=== PATIENT | female | born 2000 | race Caucasian/White ===

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

== ENCOUNTER → 2019-01-29 15:51 | Outpatient (CLI) | payer MEDICAID, SELFPAY ==
[2019-01-29 16:22] LABS: Basophils # 0.1 K/mm3 (0-0.2); Basophils % 0.7 % (0.1-2.0); Eosinophils # 0.5 K/mm3 (0.0-0.4); Eosinophils % 5.7 % (0.1-12.0); Hematocrit 42.9 % (37.0-47.0); Hemoglobin 13.8 g/dL (12.2-16.2); Lymphocytes # 3.1 K/mm3 (0.7-4.5); Lymphocytes % 35.6 % (10-50); Mean Corpuscular HGB Conc 32.3 g/dL (31.8-35.4); Mean Corpuscular Hemoglobin 27.3 pg (27.0-31.2); Mean Corpuscular Volume 84.6 fl (81-99); Mean Platelet Volume 6.7 fl (7.4-10.4); Monocytes # 0.6 K/mm3 (0.1-1.0); Monocytes % 6.9 % (1.7-9.3); Neutrophils # 4.4 K/mm3 (1.8-7.8); Neutrophils % 51.1 % (37.0-80.0); Platelet Count 390 K/mm3 (142-424); Red Blood Count 5.08 M/mm3 (4.20-5.40); Red Cell Distribution Width 12.4 % (11.5-17.5); White Blood Count 8.6 K/mm3 (4.5-13.0)
[2019-01-29 17:12] LABS: Free Thyroxine Index 3.7 ug/dL (5.93-13.13); T4 (Thyroxine) 11.6 ug/dl (5.4-10.6); Thyroid Stimulating Hormone 2.29 uIU/ml (0.516-4.13); Triiodothryronine (T3) Uptake 32 % (31-39)
== END ==
PROVIDERS: Visit Provider Nurse Practitioner Obstetrics & Gynecology
DX: R53.82 Chronic fatigue, unspecified (principal)
CPT/HCPCS: 36415; 84436; 84443; 84479; 85025

== ENCOUNTER → 2019-12-26 14:44 | Outpatient (CLI) | payer OTHER, SELFPAY ==
--- NOTE | 2019-12-26 14:45 | US_ITS ---
PROCEDURE: US TRANSVAGINAL CLINICAL INDICATION: pelvic pain Recurring infection, pelvic pain COMPARISON: US OBTV US OB transvaginal from 08/04/2017 FINDINGS: UTERUS: 8cm x 5cmx 3cm with a combined endometrial thickness of 9.5mm LEFT OVARY: [id number] with a volume of 10.5ml. RIGHT OVARY: [id number] with a volume of 7.5ml. Small nabothian cysts are present. Complex cyst is present in the left ovary measuring approximately 2 cm with some irregularity/thickening of the wall of the cyst. Small follicles of the right ovary are noted. Small amount of cul-de-sac fluid noted.. IMPRESSION: 2 cm complex left ovarian cyst with small amount of fluid in the cul-de-sac. Dictated b Lon Lam MD 12/26/2019 16:56 Lon Lam MD in [facility] 12/26/2019 16:56
== END ==
PROVIDERS: PCP Nurse Practitioner Obstetrics & Gynecology; Visit Provider Nurse Practitioner Obstetrics & Gynecology
DX: R10.2 Pelvic and perineal pain (principal)
CPT/HCPCS: 76830

== ENCOUNTER → 2020-09-07 16:35 | Outpatient (CLI) | payer OTHER, SELFPAY ==
[2020-09-11 10:12] LABS: Neisseria gonorrhoeae, NAA Negative (Negative)
== END ==
PROVIDERS: Visit Provider Nurse Practitioner Obstetrics & Gynecology
DX: Z72.51 High risk heterosexual behavior (principal)
CPT/HCPCS: 87491; 87591

== ENCOUNTER → 2020-11-12 12:58 | Outpatient (CLI) | payer OTHER, SELFPAY ==
--- NOTE | 2020-11-12 13:02 | MR_ITS ---
PROCEDURE: MR SHOULDER LT W CON CLINICAL INDICATION: LEFT SHOULDER PAIN Tingling down arm to 5th digit. Symptoms [id number] after lifting heavy object. Tightness on lateral aspect of humerus when raising arm. Prior x-ray 11/12/20. COMPARISON: KAREN,RYANNE IR ARTHROGRAM SHOULDER LT from 11/12/2020 TECHNIQUE: Following obtaining informed consent and time-out procedure under aseptic conditions and local anesthesia with 1 percent buffered lidocaine, 20 gauge spinal needle was inserted into the shoulder joint by the anterior approach. Approximately 12 mL of a mixture lidocaine, gadolinium, and Isovue-300 was injected without complication. Patient tolerated the procedure well without evidence of immediate complication. Images were obtained and then the patient was taken to MRI for MRI arthrogram sequences. FINDINGS: On the arthrogram images there was no evidence of contrast extravasation into the sub acromial region. No evidence of rotator cuff tear. No evidence of adhesive capsulitis. MRI arthrogram: There is absence of the anterior superior glenoid labrum at the 1 to 3 o'clock position with thickening of the middle glenohumeral ligament consistent with a [place] complex. There is no evidence of a rotator cuff tear. No abnormal extravasation into the subacromial region. There is some contrast extravasation into the soft tissues. The labrum appears intact. The supraspinatus, infraspinatus, subscapularis, and teres minor tendons appear intact. There is some extravasation of contrast along the inferior aspect of the axillary region adjacent to the humerus suggestive of humeral avulsion of the glenohumeral ligament posteriorly. The bicipital tendon is in place. No subacromial stenosis. IMPRESSION: 1. No evidence of rotator cuff tear. 2. [place] complex. 3. Findings suggestive of HAGL posteriorly Dictated by: Lon Lam MD 11/16/2020 08:32 Lon Lam MD in [facility] 11/16/2020 08:34
--- NOTE | 2020-11-12 13:29 | XR_ITS ---
PROCEDURE: XR SHOULDER LT MIN 2V CLINICAL INDICATION: LT SHOULDER PAIN COMPARISON: No exams were available for comparison FINDINGS: No fracture or dislocation. No lytic or blastic change. There is normal mineralization. The joint spaces are well-preserved. No significant degenerative/arthritic changes. No erosive changes evident. Other findings:None. IMPRESSION: No acute findings. Dictated by: Lon Lam MD 11/12/2020 13:43 Lon Lam MD in [facility] 11/12/2020 13:43
== END ==
PROVIDERS: Visit Provider Orthopaedic Surgery
DX: M25.512 Pain in left shoulder (principal)
CPT/HCPCS: 73030; 73040; 73222; Q9967

== ENCOUNTER → 2021-03-30 16:15 | Outpatient (CLI) | payer OTHER, SELFPAY ==
[2021-03-30 16:52] LABS: Basophils # 0.1 K/mm3 (0-0.2); Basophils % 0.9 % (0.1-2.0); Eosinophils # 0.1 K/mm3 (0.0-0.4); Eosinophils % 1.2 % (0.1-12.0); Hematocrit 41.2 % (37.0-47.0); Hemoglobin 13.8 g/dL (12.2-16.2); Lymphocytes # 3.4 K/mm3 (0.7-4.5); Lymphocytes % 30.4 % (10-50); Mean Corpuscular HGB Conc 33.4 g/dL (31.8-35.4); Mean Corpuscular Hemoglobin 27.8 pg (27.0-31.2); Mean Corpuscular Volume 83.3 fl (81-99); Mean Platelet Volume 7.9 fl (7.4-10.4); Monocytes # 0.9 K/mm3 (0.1-1.0); Neutrophils # 6.6 K/mm3 (1.8-7.8); Neutrophils % 59.4 % (37.0-80.0); Platelet Count 436 K/mm3 (142-424); Red Blood Count 4.95 M/mm3 (4.20-5.40); Red Cell Distribution Width 12.9 % (11.5-17.5); White Blood Count 11.1 K/mm3 (4.8-10.8)
[2021-03-30 17:06] LABS: Urine Pregnancy, HCG Qual. Negative (Negative)
[2021-03-30 18:37] LABS: Alanine Aminotransferase 13 U/L (12-78); Albumin Level 4.7 g/dl (3.5-5.0); Albumin/Globulin Ratio 1.5 (1.1-1.8); Alkaline Phosphatase 81 U/L (38-126); Anion Gap 16.1 mEq/L (5-15); Aspartate Amino Transferase 28 U/L (14-36); Bilirubin,Total 0.6 mg/dl (0.2-1.3); Blood Urea Nitrogen 5 mg/dl (7-17); Calcium 9.4 mg/dl (8.4-10.2); Carbon Dioxide 26 mmol/L (22.0-30.0); Chloride 100 mmol/L (98-107); Estimated Glomerular Filt Rate 156 ml/min (>60); GFR (African American) 188 ML/MIN (>60); Globulin 3.1 g/dL (1.3-3.2); Glucose 79 mg/dl (74-100); Potassium 4.1 mmoL/L (3.5-5.1); Sodium 138 mmol/L (136-145); Total Protein,Serum 7.8 g/dl (6.3-8.2)
[2021-03-30 18:51] LABS: T4 (Thyroxine) 10.3 ug/dl (5.53-11.0)
[2021-03-30 19:05] LABS: Thyroid Stimulating Hormone 2.31 uIU/mL (0.465-4.68)
[2021-03-30 20:25] LABS: Erythrocyte Sedimentation Rate 15 mm/hr (0-20)
== END ==
PROVIDERS: Visit Provider Internal Medicine
DX: R11.0 Nausea (principal); E04.9 Nontoxic goiter, unspecified; R53.83 Other fatigue; G43.009 Migraine without aura, not intractable, without status migrainosus
CPT/HCPCS: 36415; 80053; 81025; 84436; 84443; 85025; 85651

== ENCOUNTER → 2021-05-11 15:44 | Outpatient (CLI) | payer OTHER, SELFPAY ==
--- NOTE | 2021-05-11 15:49 | XR_ITS ---
PROCEDURE: XR SACRUM COCCYX MIN 2V CLINICAL INDICATION: FALL 2 MONTHS AGO, TAIL BONE PAIN COMPARISON: No exams were available for comparison FINDINGS: No obvious fracture or dislocation. On the lateral view there is some bony protrudes along the posterior and proximal aspect of the mid coccyx which may be related to the mildly prominent transverse processes of the C4 segment of the coccyx as seen on the AP view. IMPRESSION: No definite acute finding. Dictated by: Lon Lam MD 05/11/2021 16:05 Lon Lam MD in [facility] 05/11/2021 16:05
== END ==
PROVIDERS: PCP Internal Medicine; Visit Provider Internal Medicine
DX: M53.3 Sacrococcygeal disorders, not elsewhere classified (principal); W19.XXXD Unspecified fall, subsequent encounter
CPT/HCPCS: 72220

== ENCOUNTER → 2021-09-03 17:14 | Outpatient (CLI) | payer OTHER, SELFPAY | PROVIDERS: PCP Internal Medicine; Visit Provider Internal Medicine | DX: L03.032 Cellulitis of left toe (principal); B95.7 Other staphylococcus as the cause of diseases classified elsewhere | CPT/HCPCS: 87070; 87077; 87186; 87205 ==

== ENCOUNTER → 2022-04-15 15:01 | Outpatient (CLI) | payer OTHER, SELFPAY | PROVIDERS: PCP Internal Medicine; Visit Provider Obstetrics & Gynecology | DX: Z34.90 Encounter for supervision of normal pregnancy, unspecified, unspecified trimester (principal) | CPT/HCPCS: 36415; 84702 ==

== ENCOUNTER → 2022-04-26 11:45 | Outpatient (CLI) | payer OTHER, SELFPAY ==
[2022-04-26 12:43] LABS: Basophils # 0.1 K/mm3 (0-0.2); Basophils % 0.5 % (0.1-2.0); Eosinophils # 0.1 K/mm3 (0.0-0.4); Eosinophils % 1.2 % (0.1-12.0); Hemoglobin 12.4 g/dL (12.2-16.2); Lymphocytes # 2.5 K/mm3 (0.7-4.5); Lymphocytes % 26.1 % (10-50); Mean Corpuscular HGB Conc 32.6 g/dL (31.8-35.4); Mean Corpuscular Hemoglobin 27.9 pg (27.0-31.2); Mean Corpuscular Volume 85.4 fl (81-99); Mean Platelet Volume 7.2 fl (7.4-10.4); Monocytes # 0.5 K/mm3 (0.1-1.0); Monocytes % 5.2 % (1.7-9.3); Neutrophils # 6.4 K/mm3 (1.8-7.8); Neutrophils % 66.9 % (37.0-80.0); Platelet Count 402 K/mm3 (142-424); Red Blood Count 4.45 M/mm3 (4.20-5.40); Red Cell Distribution Width 13.6 % (11.5-17.5); White Blood Count 9.6 K/mm3 (4.8-10.8)
[2022-04-27 07:26] LABS: Rubella Antibodies, IgG 1.31 index (Immune >0.99)
[2022-04-27 12:38] LABS: Rapid Plasma Reagin Ab Titer Non Reactive (NonRea<1:1)
[2022-05-07 23:38] LABS: HIV Screen 4th Generation wRfx NON REACTIVE; Hepatitis B Surface Antigen NEGATIVE; Hepatitis C Antibody <0.1
== END ==
PROVIDERS: PCP Internal Medicine; Visit Provider Obstetrics & Gynecology
DX: Z34.90 Encounter for supervision of normal pregnancy, unspecified, unspecified trimester (principal)
CPT/HCPCS: 36415; 85025; 86592; 86703; 86762; 86850; 87086; 87340; 87380; G0432

== ENCOUNTER → 2022-07-15 15:18 | Outpatient (CLI) | payer OTHER, SELFPAY ==
--- NOTE | 2022-07-15 15:18 | US_ITS ---
FINAL REPORT CLINICAL HISTORY: 20 week anatomy scan FINDINGS: There is a single live intrauterine gestation. Presentation is cephalic. The cervix is closed and measures 4.8 cm. Placenta is low lying posterior. movement is noted. heart rate of 146 beats per minute. Three-vessel cord with satisfactory umbilical cord insertion. Four-chamber heart is noted. brain and ventricles are unremarkable. Chest and diaphragm are unremarkable. ABDOMEN: Both kidneys are visualized. Stomach is visualized. SPINE: No anomalies identified. Both arms and legs noted. AMNIOTIC FLUID: Appropriate amount. MEASUREMENTS: ULTRASOUND AGE: 20 weeks 3 days. GESTATION AGE: 20 weeks 3 days. ESTIMATED WEIGHT: 339 g GROWTH PERCENTILE: 33 % BPD: 4.9 cm consistent with 20 weeks 6 days. OFD: 6.3 cm consistent with 21 weeks 0 days. HC: 17.7 cm consistent with 20 weeks 2 days. AC: 15.1 cm consistent with 20 weeks 3 days. FL: 3.2 cm consistent with 20 weeks 0 days. CEREBELLUM: 2.0 cm consistent with 20 weeks 2 days. HUMERUS: 3.2 cm consistent with 20 weeks 4 days. HC/AC: 1.17 CI: 78% FL/BPD: 65% FL/AC: 21% IMPRESSION: IMPRESSION: Single living IUP with an ultrasound age of 20 weeks 3 days. Reviewed, Interpreted and Dictated by Charity Contreras MD Transcribed by Rekha Blankenship Authenticated and [facility]
== END ==
PROVIDERS: PCP Internal Medicine; Visit Provider Obstetrics & Gynecology
DX: Z34.90 Encounter for supervision of normal pregnancy, unspecified, unspecified trimester (principal); Z3A.20 20 weeks gestation of pregnancy
CPT/HCPCS: 76811

== ENCOUNTER → 2022-08-29 08:52 | Outpatient (CLI) | payer OTHER, SELFPAY ==
[2022-08-29 09:08] LABS: Basophils # 0.1 K/mm3 (0-0.2); Basophils % 0.4 % (0.1-2.0); Eosinophils # 0.3 K/mm3 (0.0-0.4); Eosinophils % 2.3 % (0.1-12.0); Hematocrit 31.4 % (37.0-47.0); Hemoglobin 10.2 g/dL (12.2-16.2); Lymphocytes # 2.8 K/mm3 (0.7-4.5); Lymphocytes % 24.8 % (10-50); Mean Corpuscular HGB Conc 32.5 g/dL (31.8-35.4); Mean Corpuscular Hemoglobin 26.4 pg (27.0-31.2); Mean Corpuscular Volume 81.2 fl (81-99); Monocytes # 0.9 K/mm3 (0.1-1.0); Monocytes % 7.5 % (1.7-9.3); Neutrophils # 7.3 K/mm3 (1.8-7.8); Platelet Count 333 K/mm3 (142-424); Red Blood Count 3.86 M/mm3 (4.20-5.40); Red Cell Distribution Width 13.5 % (11.5-17.5); White Blood Count 11.3 K/mm3 (4.8-10.8)
[2022-08-29 09:23] LABS: Glucose,Fasting 86 mg/dl (74-100)
[2022-08-29 10:45] LABS: Glucose 1 Hour 167 mg/dL (74-100)
== END ==
PROVIDERS: PCP Internal Medicine; Visit Provider Obstetrics & Gynecology
DX: O44.40 Low lying placenta NOS or without hemorrhage, unspecified trimester (principal); O99.810 Abnormal glucose complicating pregnancy; Z3A.23 23 weeks gestation of pregnancy
CPT/HCPCS: 36415; 82951; 85025

== ENCOUNTER → 2022-09-09 10:36 | Outpatient (CLI) | payer OTHER, SELFPAY ==
[2022-09-09 11:07] LABS: Glucose,Fasting 82 mg/dl (74-100)
[2022-09-09 12:58] LABS: Glucose 1 Hour 180 mg/dL (74-100)
[2022-09-09 14:00] LABS: Glucose 2 Hour 164 mg/dL (74-100)
[2022-09-09 15:36] LABS: Glucose 3 Hour 129 mg/dL (74-100)
== END ==
PROVIDERS: PCP Internal Medicine; Visit Provider Obstetrics & Gynecology
DX: Z34.90 Encounter for supervision of normal pregnancy, unspecified, unspecified trimester (principal); Z3A.28 28 weeks gestation of pregnancy
CPT/HCPCS: 36415; 82951

== ENCOUNTER 2022-10-14 00:12 | Observation (INO) | payer OTHER, SELFPAY ==
[2022-10-13 23:25] VITALS: BP 138/93; PULSE 120; RESP 19; TEMP 36.8; O2SAT 98; BMI 25.2
[2022-10-13 23:30] VITALS: BMI 25.2
[2022-10-13 23:36] VITALS: BP 139/87; PULSE 119
[2022-10-13 23:45] LABS: Microscopic, Urine URINE MICROSCOPIC (MICROSCOPIC)
[2022-10-13 23:48] LABS: Appearance,Urine CLEAR (Clear); Bilirubin,Urine Negative (Negative); Blood, Urine Negative (Negative); Color,Urine YELLOW (Yellow); Glucose,Urine (UA) 1+ (Negative); Ketones,Urine Negative (Negative); Leukocyte Esterase,Urine Negative (Negative); Nitrate,Urine Negative (Negative); Protein,Urine Negative (Negative); Urobilinogen,Urine 0.2 EU/dl (0.2)
[2022-10-13 23:51] VITALS: BP 150/105; PULSE 125
[2022-10-13 23:51] LABS: Bacteria,Urine Trace /lpf; RBC,Urine Occasional #/hpf (0-3); WBC,Urine Occasional #/hpf (0-3)
[2022-10-13 23:53] VITALS: BP 138/102
[2022-10-14] VITALS (20 sets, daily range): BP systolic 98–143; BP diastolic 53–97; PULSE 93–130; RESP 18–20; TEMP 36.7–36.9; O2SAT 98–99
[2022-10-14] LABS: Barbiturates Screen,Urine Negative ng/ml (<200); Benzodiazepines Screen,Urine Negative ng/ml (<200)
[2022-10-14 00:01] LABS: Amphetamine/Metha Screen,Urine Negative ng/ml (<1000); Cannabinoid Screen,Urine Negative ng/ml (<50)
[2022-10-14 00:02] LABS: Cocaine Screen,Urine Negative ng/ml (<300)
[2022-10-14 00:03] LABS: Methadone Screen,Urine Negative ng/ml (<300); Opiate Screen,Urine Negative ng/ml (<300)
[2022-10-14 00:04] LABS: Phencyclidine Screen,Urine Negative ng/ml (<25)
[2022-10-14 00:49] LABS: Coronavirus 19, PCR Not Detected (NotDetected); Influenza A, PCR Not Detected (NotDetected); Influenza B, PCR Not Detected (NotDetected)
[2022-10-14 01:02] LABS: Basophils % 0.2 % (0.1-2.0); Eosinophils # 0.3 K/mm3 (0.0-0.4); Eosinophils % 2.3 % (0.1-12.0); Hematocrit 28.1 % (37.0-47.0); Lymphocytes % 25.6 % (10-50); Mean Corpuscular HGB Conc 32.2 g/dL (31.8-35.4); Mean Corpuscular Hemoglobin 23.3 pg (27.0-31.2); Mean Corpuscular Volume 72.4 fl (81-99); Mean Platelet Volume 8.5 fl (7.4-10.4); Monocytes # 1.1 K/mm3 (0.1-1.0); Monocytes % 9.3 % (1.7-9.3); Neutrophils # 7.3 K/mm3 (1.8-7.8); Neutrophils % 62.5 % (37.0-80.0); Platelet Count 386 K/mm3 (142-424); Red Blood Count 3.88 M/mm3 (4.20-5.40); Red Cell Distribution Width 15.4 % (11.5-17.5); White Blood Count 11.7 K/mm3 (4.8-10.8)
[2022-10-14 01:10] LABS: D-Dimer 1.48 ug/mL (0.0-0.5)
[2022-10-14 01:13] LABS: Activated Partial Thrombo Time 23.4 seconds (22.8-30.6); Fibrinogen 436 mg/dL (229.9-363.5); INR 0.91 (0.9-1.1); Prothrombin Time 9.9 seconds (10.1-12.5)
[2022-10-14 01:19] LABS: Alanine Aminotransferase 21 U/L (12-78); Anion Gap 14.3 mEq/L (5-15); Aspartate Amino Transferase 33 U/L (14-36); Blood Urea Nitrogen 3 mg/dl (7-17); Calcium 7.9 mg/dl (8.4-10.2); Carbon Dioxide 22 mmol/L (22.0-30.0); Chloride 103 mmol/L (98-107); Creatinine Clearance Estimated 291 mL/min (50-200); Estimated Glomerular Filt Rate 278 ml/min (>60); GFR (African American) 337 ML/MIN (>60); Glucose 111 mg/dl (74-100); Potassium 3.3 mmoL/L (3.5-5.1); Sodium 136 mmol/L (136-145); Uric Acid 2.5 mg/dl (2.5-6.2)
--- NOTE | 2022-10-14 16:39 | EXP.HPDC ---
General Admission date:: 10/14/22 Discharge date: 10/14/22 *Admission Date: 10/14/22 *Chief complaint: back pain *History of present illness: 21 yo at 31 07/19 She presented to OB triage with complaint of back pain and concerned about possible contractions She was not having contractions on the monitor when she arrived, but BP was initially elevated 130-150/70-100 She was admitted for observation, and after moving into a regular hospital room, all of her BP except 1 were normal range monitoring was reassuring overnight and BP remained normal She had moderate anemia noted during lab evaluation for hypertension, and was given a dose of IV iron therapy while admitted She also had some tachycardia associated with her [facility] Disclaimer: The information contained in this section may have been updated after the patient was seen, as this information can be updated by other users. Medical History History of trichomonal vaginitis Tenosynovitis of wrist Family History (Updated 10/14/22 @ 03:43 by Andree Valdes RN) No significant family history Social History (Updated 10/14/22 @ 03:43 by Andree Valdes RN) Smoking Status: Never smoker alcohol intake: never substance use type: denies use current occupational status: unemployed Travel in the last 8 weeks: None do you feel safe at home: Yes victim of physical abuse: No victim of emotional abuse: No victim of sexual abuse: No Review of Systems Constitutional Constitutional: Reports system reviewed and no additional complaints, except as documented and Denies headache(s) ENT Ears, Nose, Mouth, and Throat: Denies headache(s) *Genitourinary Genitourinary: Denies abnormal vaginal bleeding *Neurologic Neurologic: Denies headache(s) and Denies other visual disturbances Exam Data for Last 24 hours Vital signs and Labs for Last 24 Hours: Temp Pulse Resp BP Pulse Ox 98.4 F 102 H 20 113/61 98 10/14/22 16:06 10/14/22 16:06 10/14/22 16:06 10/14/22 16:06 10/14/22 16:06 Laboratory Results - last 24 hr 10/13/22 23:34: Urine Color Yellow, Urine Appearance Clear, Urine pH 6.0, Ur Specific [place] 1.010, Urine Protein Negative, Urine Glucose (UA) 1+, Urine Ketones Negative, Urine Blood Negative, Urine Nitrate Negative, Urine Bilirubin Negative, Urine Urobilinogen 0.2, Ur Leukocyte Esterase Negative, Urine RBC Occasional, Urine WBC Occasional, Ur Squamous Epith Cells 3-5, Urine Bacteria Trace 10/13/22 23:34: Urine Opiates Screen Negative, Urine Methadone Screen Negative, Ur Barbituates Screen Negative, Ur Phencyclidine Scrn Negative, Ur Amphetamines Screen Negative, U Benzodiazepines Scrn Negative, Urine Cocaine Screen Negative, U Marijuana (THC) Screen Negative 10/14/22 00:25: SARS-CoV-2 (PCR) Not detected, Influenza A Untype (PCR) Not detected, Influenza Type B (PCR) Not detected 10/14/22 00:30: WBC 11.7 H, RBC 3.88 L, Hgb 9.0 L, Hct 28.1 L, MCV 72.4 L, MCH 23.3 L, MCHC 32.2, RDW 15.4, Plt Count 386, MPV 8.5, Neut % (Auto) 62.5, Lymph % (Auto) 25.6, [place] % (Auto) 9.3, Eos % (Auto) 2.3, Baso % (Auto) 0.2, Neut # (Auto) 7.3, Lymph # (Auto) 3.0, [place] # (Auto) 1.1 H, Eos # (Auto) 0.3, Baso # (Auto) 0.0 10/14/22 00:30: PT 9.9 L, INR 0.91, APTT 23.4, Fibrinogen 436 H 10/14/22 00:30: D-Dimer 1.48 H, Sodium 136, Potassium 3.3 L, Chloride 103, Carbon Dioxide 22, Anion Gap 14.3, BUN 3 L, Creatinine 0.30 L, Estimated Creat Clear 291, Estimated GFR 278, Est GFR ( Amer) 337, Glucose 111 H, Uric Acid 2.5, Calcium 7.9 L, AST 33, ALT 21 I & O for Last 24 hours: Intake & Output 10/12/22 10/13/22 10/14/22 10/15/22 11:59 11:59 11:59 11:59 Weight 138 lb Constitutional Constitutional: no acute distress *Routine HEENT Exam Head: Present normocephalic Eye: Absent conjunctival icterus or scleral injection ENT: Present mucous membranes moist *Routine Neck Exam Neck: Present supple
== END 2022-10-14 17:43 | disposition home or self-care (01) ==
LOC: OBOUT 00:14 → OB 06:08
PROVIDERS: Admitting Provider Nurse Practitioner Obstetrics & Gynecology; PCP Internal Medicine; Referring Provider Obstetrics & Gynecology; Visit Provider Nurse Practitioner Obstetrics & Gynecology
DX: O47.03 False labor before 37 completed weeks of gestation, third trimester (principal); Z3A.33 33 weeks gestation of pregnancy; O99.019 Anemia complicating pregnancy, unspecified trimester; O16.3 Unspecified maternal hypertension, third trimester
CPT/HCPCS: 59025; 80048; 80305; 81001; 84450; 84460; 84550; 85025; 85378; 85384; 85610; 85730; 87635; 87636; C9803; G0378; J1756; J2405; U0003; U0005

== ENCOUNTER → 2022-10-19 16:36 | Outpatient (CLI) | payer OTHER, SELFPAY ==
--- NOTE | 2022-10-19 16:36 | US_ITS ---
PROCEDURE: US OB BIOPHYSICAL PROFILE CLINICAL INDICATION: sga TECHNIQUE: Transabdominal ultrasound FINDINGS: The following parameters are obtained: From her last menstrual period she is 34 weeks 1 day There is a viable fetus in the cephalic presentation. Average ultrasound age [id number] 0 days. Estimated due date by ultrasound is 11/30/2022. Estimated weight is 2,308g, 5 pounds 1 ounce. 37 percentile. BPD: 34weeks 4days OFD: 34weeks 4days HC: 30.4cm AC: 30.5cm FL: 6.3cm heart rate: 140bpm bpm. HC/AC: 1 Cephalic index: 0.8 FL/BPD: 0.74 FL/AC: 0.21 Amniotic fluid index: 13.25cm Qualitative AFV: 2 breathing movements: 2 Gross body movements: 2 Tone: 2 Biophysical profile score: 8 Doppler evaluation of the umbilical artery: SD ratio: 2.9 Resistive index: 0.66 No obvious anomalies evident. profile, kidneys, four-chamber heart, bladder, three-vessel cord all appear normal. Placenta: Posterior grade 2 Cervix: 3.73 cm IMPRESSION: 1. Fetus is in the cephalic presentation with a posterior placenta grade 2. 2. Biophysical profile is 8/8 with good breathing movement seen. 3. Amniotic fluid index is 13.25 cm. 4. There has been good growth with the estimated weight 2308 grams, 5 pounds 1 ounce. 37 percentile Dictated by: Marek Mcrae MD 10/19/2022 18:15 Marek Mcrae MD in [place] 10/19/2022 18:15
== END ==
PROVIDERS: PCP Internal Medicine; Visit Provider Obstetrics & Gynecology
DX: O36.5990 Maternal care for other known or suspected poor fetal growth, unspecified trimester, not applicable or unspecified (principal); Z3A.34 34 weeks gestation of pregnancy
CPT/HCPCS: 76816; 76819; 76820

== ENCOUNTER 2022-10-23 22:38 | Observation (INO) | payer OTHER, SELFPAY ==
[2022-10-23 20:17] VITALS: BMI 25.9
[2022-10-23 20:28] LABS: Microscopic, Urine URINE MICROSCOPIC (MICROSCOPIC)
[2022-10-23 20:36] LABS: Appearance,Urine CLEAR (Clear); Bilirubin,Urine Negative (Negative); Blood, Urine Negative (Negative); Color,Urine YELLOW (Yellow); Glucose,Urine (UA) Negative (Negative); Ketones,Urine TRACE (Negative); Leukocyte Esterase,Urine 1+ (Negative); Nitrate,Urine Negative (Negative); Protein,Urine Negative (Negative); Urobilinogen,Urine 0.2 EU/dl (0.2)
[2022-10-23 20:38] VITALS: BP 113/87; PULSE 104; RESP 18; TEMP 36.8; O2SAT 98; BMI 25.9
[2022-10-23 20:39] LABS: POC Glucose,Bedside 95 (70-110)
[2022-10-23 20:48] LABS: Barbiturates Screen,Urine Negative ng/ml (<200); Benzodiazepines Screen,Urine Negative ng/ml (<200)
[2022-10-23 20:49] LABS: Amphetamine/Metha Screen,Urine Negative ng/ml (<1000)
[2022-10-23 20:50] LABS: Cannabinoid Screen,Urine Negative ng/ml (<50)
[2022-10-23 20:51] VITALS: BP 132/90; PULSE 105
[2022-10-23 20:53] LABS: Bacteria,Urine Trace /lpf
[2022-10-23 21:25] LABS: Cocaine Screen,Urine Negative ng/ml (<300)
[2022-10-23 21:26] LABS: Methadone Screen,Urine Negative ng/ml (<300)
[2022-10-23 21:27] LABS: Opiate Screen,Urine Negative ng/ml (<300); Phencyclidine Screen,Urine Negative ng/ml (<25)
[2022-10-23 21:35] LABS: Chloride 102 mmol/L (98-107); Sodium 134 mmol/L (136-145)
[2022-10-23 21:36] LABS: Basophils % 0.2 % (0.1-2.0); Eosinophils # 0.2 K/mm3 (0.0-0.4); Eosinophils % 1.3 % (0.1-12.0); Hematocrit 30.7 % (37.0-47.0); Hemoglobin 9.9 g/dL (12.2-16.2); Lymphocytes # 2.5 K/mm3 (0.7-4.5); Lymphocytes % 19.8 % (10-50); Mean Corpuscular HGB Conc 32.1 g/dL (31.8-35.4); Mean Corpuscular Hemoglobin 23.2 pg (27.0-31.2); Mean Corpuscular Volume 72.1 fl (81-99); Monocytes % 7.8 % (1.7-9.3); Neutrophils # 8.8 K/mm3 (1.8-7.8); Neutrophils % 70.9 % (37.0-80.0); Platelet Count 328 K/mm3 (142-424); Red Blood Count 4.26 M/mm3 (4.20-5.40); Red Cell Distribution Width 17.6 % (11.5-17.5); White Blood Count 12.4 K/mm3 (4.8-10.8)
[2022-10-23 21:38] LABS: Alanine Aminotransferase 15 U/L (12-78); Albumin Level 3.5 g/dl (3.5-5.0); Albumin/Globulin Ratio 1.1 (1.1-1.8); Alkaline Phosphatase 144 U/L (38-126); Aspartate Amino Transferase 28 U/L (14-36); Bilirubin,Total 0.4 mg/dl (0.2-1.3); Blood Urea Nitrogen 5 mg/dl (7-17); Carbon Dioxide 22 mmol/L (22.0-30.0); Creatinine Clearance Estimated 224 mL/min (50-200); Estimated Glomerular Filt Rate 200 ml/min (>60); GFR (African American) 242 ML/MIN (>60); Globulin 3.1 g/dL (1.3-3.2); Total Protein,Serum 6.6 g/dl (6.3-8.2)
[2022-10-23 21:39] LABS: Calcium 8.7 mg/dl (8.4-10.2); Glucose 72 mg/dl (74-100)
[2022-10-23 22:11] VITALS: BP 120/84; PULSE 104
[2022-10-23 22:22] LABS: POC Glucose,Bedside 103 (70-110)
--- NOTE | 2022-10-23 22:31 | CT_ITS ---
PROCEDURE INFORMATION: Exam: CT Head Without Contrast Exam date and time: 10/23/2022 11:17 PM Age: 21 years old Clinical indication: Stroke-like symptoms; Headache; Right upper extremity numbness/paresthesia; Additional info: Headache with double vision, numbness in hand TECHNIQUE: Imaging protocol: Computed tomography of the head without contrast. Radiation optimization: All CT scans at this facility use at least one of these dose optimization techniques: automated exposure control; mA and/or kV adjustment per patient size (includes targeted exams where dose is matched to clinical indication); or iterative reconstruction. Other technique: STROKE PROTOCOL was implemented. REPORTING DATA: Count of CT and Cardiac NM exams in prior 12 months: This patient has received 0 known CTs and 0 known cardiac nuclear medicine studies in the 12 months prior to the current study. COMPARISON: [facility] CT HEAD W/O CONTRAST 01/29/2016 10:12 AM FINDINGS: Brain: Normal appearing brain parenchyma without intraparenchymal hemorrhage and normal richardson-white matter differentiation/no obvious acute ischemic stroke. No intra-or extra-axial fluid collection, no supra-or infratentorial mass, no mass effect or midline shift. Cerebral ventricles: Ventricles, sulci and basal cisterns are normal in size without hydrocephalus. Paranasal sinuses: No significant mucoperiosteal thickening in the visualized paranasal sinuses. Mastoid air cells: No mastoid effusion. Bones/joints: Visualized skull bones are grossly normal. Soft tissues: NA IMPRESSION: No evidence of an acute intracranial hemorrhage, mass lesion or obvious acute ischemic infarction. COMMENT: Possibility of early and/or small acute/subacute ischemic infarct cannot be excluded on a CT scan. Recommend followup with MRI if persistent/worsening focal neurological deficits. ASSESSMENT: ASPECTS ([place] Stroke Program Early CT Score) is 10.
[2022-10-23 23:45] VITALS: BP 115/73; PULSE 100
[2022-10-24 03:55] VITALS: BP 107/65; PULSE 93; RESP 18; TEMP 36.9; O2SAT 97
--- NOTE | 2022-10-24 07:13 | HMH.PHAINT1 ---
Pharmacy Intervention Comments: MEDICATION RECONCILIATION COMPLETED ON PATIENT USING EXTERNAL FILL HISTORY FROM PHARMACY. -GEE GIBBONS, MARTD
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
== END 2022-10-24 13:00 | disposition home or self-care (01) ==
LOC: OBOUT 22:39 → OB 10-24 00:23
PROVIDERS: Admitting Provider Obstetrics & Gynecology; PCP Internal Medicine; Visit Provider Obstetrics & Gynecology
DX: O26.893 Other specified pregnancy related conditions, third trimester (principal); G43.909 Migraine, unspecified, not intractable, without status migrainosus; O99.013 Anemia complicating pregnancy, third trimester; R12 Heartburn
CPT/HCPCS: 70450; 80053; 80305; 81001; 82962; 85025; 87086; G0378

== ENCOUNTER → 2022-11-01 19:17 | Outpatient (CLI) | payer OTHER, SELFPAY | PROVIDERS: PCP Obstetrics & Gynecology; Visit Provider Obstetrics & Gynecology | DX: Z34.93 Encounter for supervision of normal pregnancy, unspecified, third trimester (principal); Z3A.36 36 weeks gestation of pregnancy | CPT/HCPCS: 86403 ==

== ENCOUNTER → 2022-11-29 14:40 | Outpatient (CLI) | payer OTHER, SELFPAY ==
--- NOTE | 2022-11-29 14:45 | US_ITS ---
PROCEDURE: US OB BIOPHYSICAL PROFILE CLINICAL INDICATION: Post Dates COMPARISON: Ultrasound 10/19/2022 FINDINGS: Transabdominal images of the uterus were obtained. From her established due date she is 40weeks 0 days. The following parameters are obtained: Fetus in the cephalic presentation with a posterior placenta grade 2-3. Average ultrasound age is 37weeks 6days. Estimated due date by ultrasound is 12/14/2022. Estimated weight is 7lb 5.36oz, 3327 grams. 27percentile. heart rate: 147bpm bpm. BPD: 37weeks 2days OFD: 37weeks 2days HC: 37 weeks 3 days AC: 38 weeks 3 days FL: 36 weeks 6 days HC/AC: 0.95 Cephalic index: 0.84 FL/BPD: 0.76 FL/AC: 0.21 Amniotic fluid index: 8.88cm Qualitative AFV: 2 breathing movements: 2 Gross body movements: 2 Tone: 2 Biophysical profile score: 8 Doppler evaluation of the umbilical artery: SD ratio: 1.94 Resistive index: 0.48 No obvious anomalies evident.Kidneys, three-vessel cord appear normal. Profile and four-chamber view appear normal IMPRESSION: 1. Viable fetus in the cephalic presentation with a posterior placenta grade 2-3. 2. The fluid is normal with an amniotic fluid index of 8.9 cm. 3. SD ratios normal. 4. Biophysical profile 8/8 with good breathing movement seen. 5. Good growth currently 27 percentile. 6. There was an episode of tachycardia during examination and the heart rate returned to normal. Dictated by: Marek Mcrae MD 11/29/2022 19:12 Marek Mcrae MD in [place] 11/29/2022 19:12
== END ==
PROVIDERS: PCP Internal Medicine; Visit Provider Nurse Practitioner Obstetrics & Gynecology
DX: O48.0 Post-term pregnancy (principal); Z34.93 Encounter for supervision of normal pregnancy, unspecified, third trimester; Z3A.40 40 weeks gestation of pregnancy
CPT/HCPCS: 76816; 76819; 76820

== ENCOUNTER 2022-12-05 05:08 | Inpatient (IN) | payer OTHER, SELFPAY ==
[2022-12-05 05:11] VITALS: BMI 27.2
[2022-12-05 05:44] LABS: Microscopic, Urine URINE MICROSCOPIC (MICROSCOPIC)
[2022-12-05 05:52] LABS: Basophils # 0.1 K/mm3 (0-0.2); Basophils % 0.4 % (0.1-2.0); Eosinophils # 0.2 K/mm3 (0.0-0.4); Eosinophils % 1.5 % (0.1-12.0); Hematocrit 38.9 % (37.0-47.0); Hemoglobin 12.3 g/dL (12.2-16.2); Lymphocytes % 27.7 % (10-50); Mean Corpuscular HGB Conc 31.6 g/dL (31.8-35.4); Mean Corpuscular Hemoglobin 23.9 pg (27.0-31.2); Mean Corpuscular Volume 75.6 fl (81-99); Mean Platelet Volume 9.2 fl (7.4-10.4); Monocytes # 0.9 K/mm3 (0.1-1.0); Monocytes % 8.6 % (1.7-9.3); Neutrophils # 6.6 K/mm3 (1.8-7.8); Neutrophils % 61.7 % (37.0-80.0); Platelet Count 289 K/mm3 (142-424); Red Blood Count 5.15 M/mm3 (4.20-5.40); Red Cell Distribution Width 21.7 % (11.5-17.5); White Blood Count 10.6 K/mm3 (4.8-10.8)
[2022-12-05 05:55] LABS: Appearance,Urine CLEAR (Clear); Bilirubin,Urine Negative (Negative); Blood, Urine Negative (Negative); Color,Urine YELLOW (Yellow); Glucose,Urine (UA) Negative (Negative); Ketones,Urine Negative (Negative); Leukocyte Esterase,Urine TRACE (Negative); Nitrate,Urine Negative (Negative); PH,Urine 5.5 (5.0-8.5); Protein,Urine TRACE (Negative); Specific Gravity, Urine >= 1.030 (1.005-1.030)
[2022-12-05 06:22] LABS: Bacteria,Urine 1+ /lpf; Calcium Oxalate Crystals,Urine 1+ /lpf
[2022-12-05 06:43] VITALS: BP 126/98; PULSE 95; RESP 18; TEMP 36.8; O2SAT 98; BMI 27.2
[2022-12-05 06:53] LABS: Opiate Screen,Urine Negative ng/ml (<300)
[2022-12-05 06:54] LABS: Phencyclidine Screen,Urine Negative ng/ml (<25)
[2022-12-05 06:58] LABS: Amphetamine/Metha Screen,Urine Negative ng/ml (<1000); Barbiturates Screen,Urine Negative ng/ml (<200)
[2022-12-05 06:59] LABS: Benzodiazepines Screen,Urine Negative ng/ml (<200); Cannabinoid Screen,Urine Negative ng/ml (<50)
[2022-12-05 07:00] LABS: Cocaine Screen,Urine Negative ng/ml (<300)
[2022-12-05 07:01] LABS: Methadone Screen,Urine Negative ng/ml (<300)
--- NOTE | 2022-12-05 07:19 | HMH.PHAINT1 ---
Pharmacy Intervention Comments: MEDICATION RECONCILIATION COMPLETED ON PATIENT USING EXTERNAL FILL HISTORY FROM PHARMACY. -GEE GIBBONS, MARTD
--- NOTE | 2022-12-05 08:39 | EXP.HP ---
History of Present Illness *Admission Date: 12/05/22 *Reason for visit:: Postterm , *History of present illness: She is a 22-year-old 3 para 1 aborta 1 at 40 weeks and 6 days. As result of that she is admitted for induction of labor at term. She has a positive blood, she is rubella immune and group B streptococcus negative. [facility] Disclaimer: The information contained in this section may have been updated after the patient was seen, as this information can be updated by other users. Medical History Carpal tunnel syndrome during History of trichomonal vaginitis Migraine No significant past medical history with 34 completed weeks gestation Tenosynovitis of wrist Family History No significant family history Social History Smoking Status: Never smoker alcohol intake: never substance use type: denies use current occupational status: employed Travel in the last 8 weeks: None household members: spouse and children housing: apartment lives independently: No marital status: number of children: 1 education level: high school service: No [place] [facility]: No current occupational exposures/hazards: No pets and animals: No sexually active: Yes do you feel safe at home: Yes victim of physical abuse: No victim of emotional abuse: No victim of sexual abuse: No Review of Systems Review of Systems Review of systems:: pertinent systems reviewed and negative unless documented below Meds Home Medications and Allergies Home Medications Medication Instructions Recorded Confirmed Type vits no.126-ferrous fum 1 tab PO DAILY Supplement 10/14/22 12/05/22 History 28 mg iron-folic acid 800 mcg tablet (Classic ) ferrous sulfate 325 mg (65 mg 325 mg PO DAILY Supplement 10/24/22 12/05/22 History iron) tablet,delayed release pantoprazole 40 mg tablet,delayed 40 mg PO DAILY Acid Reflux 12/05/22 12/05/22 History release New Prescriptions to Start Prescriptions: Allergies Allergy/AdvReac Type Severity Reaction Status Date / Time Penicillins Allergy Verified 11/29/22 14:02 metronidazole [From Flagyl] AdvReac Vomiting Verified 11/29/22 14:02 Exam Data for Last 24 hours Vital signs and Labs for Last 24 Hours: Temp Pulse Resp BP Pulse Ox O2 Del Method 98.3 F 95 H 18 126/98 H 98 Room Air 12/05/22 06:43 12/05/22 06:43 12/05/22 06:43 12/05/22 06:43 12/05/22 06:43 12/05/22 06:43 Laboratory Results - last 24 hr 12/05/22 05:20: Urine Color Yellow, Urine Appearance Clear, Urine pH 5.5, Ur Specific [place] >= 1.030, Urine Protein Trace, Urine Glucose (UA) Negative, Urine Ketones Negative, Urine Blood Negative, Urine Nitrate Negative, Urine Bilirubin Negative, Urine Urobilinogen 1.0, Ur Leukocyte Esterase Trace, Urine RBC None, Urine WBC 10-20, Ur Squamous Epith Cells 3-5, Calcium Oxalate Crystal 1+, Urine Bacteria 1+, Urine Opiates Screen Negative, Urine Methadone Screen Negative, Ur Barbituates Screen Negative, Ur Phencyclidine Scrn Negative, Ur Amphetamines Screen Negative, U Benzodiazepines Scrn Negative, Urine Cocaine Screen Negative, U Marijuana (THC) Screen Negative 12/05/22 05:30: WBC 10.6, RBC 5.15, Hgb 12.3, Hct 38.9, MCV 75.6 L, MCH 23.9 L, MCHC 31.6 L, RDW 21.7 H, Plt Count 289, MPV 9.2, Neut % (Auto) 61.7, Lymph % (Auto) 27.7, [place] % (Auto) 8.6, Eos % (Auto) 1.5, Baso % (Auto) 0.4, Neut # (Auto) 6.6, Lymph # (Auto) 3.0, [place] # (Auto) 0.9, Eos # (Auto) 0.2, Baso # (Auto) 0.1, Blood Type A Positive, Antibody Screen Negative I & O for Last 24 hours: Intake & Output 12/02/22 12/03/22 12/04/22 12/05/22 11:59 11:59 11:59 11:59 Weight 148 lb 15.991 oz Constitutional Constitutional: no acute distress *Routine HEENT Exam Head: Prese
--- NOTE | 2022-12-05 08:41 | EXP.LABOR.NO ---
Labor Note Subjective: Date: 12/05/22 Time: 08:41 regular contraction Objective: NST:: Reactive Contractions:: every 2-3 minutes Cervical Dilation:: 2-3 Effacement:: 50% Station: -1 Membranes: artificially ruptured Fetus: Monitoring?: Yes monitoring type:: Internal and External Comment:: I inserted an IUPC. Assessment: Labor progressing?: Yes Cephalopelvic disproportion?: No Plan: Anesthesia for epidural?: Yes Continue to labor down?: Yes Plan for ?: No Continue to monitor?: Yes Start pushing?: No Comment:: She has had a previous 7 pound 4 ounce baby. We expect a vaginal delivery.
--- NOTE | 2022-12-05 11:04 | EXP.LABOR.NO ---
Labor Note Subjective: Date: 12/05/22 Time: 11:04 regular contraction Objective: NST:: Reactive Contractions:: every 2-3 minutes Cervical Dilation:: 4 Effacement:: 75% Station: -1 Membranes: artificially ruptured Fetus: monitoring type:: Internal and External Assessment: Labor progressing?: Yes Cephalopelvic disproportion?: No Plan: Anesthesia for epidural?: Yes Continue to labor down?: Yes Plan for ?: No Continue to monitor?: Yes Start pushing?: No Comment:: She does have some bloody show but she is now 4 cm. Nonstress test is reactive. Contractions are every 2 to 3 minutes. We will expect a vaginal delivery. We are going to make arrangements for an epidural for her now.
--- NOTE | 2022-12-05 11:59 | P.PNANES_ITS ---
[facility] Disclaimer: The information contained in this section may have been updated after the patient was seen, as this information can be updated by other users. Medical History Carpal tunnel syndrome during History of trichomonal vaginitis Migraine No significant past medical history with 34 completed weeks gestation Tenosynovitis of wrist Family History No significant family history Social History Smoking Status: Never smoker alcohol intake: never substance use type: denies use current occupational status: employed Travel in the last 8 weeks: None household members: spouse and children housing: apartment lives independently: No marital status: number of children: 1 education level: high school service: No skilled nursing: No current occupational exposures/hazards: No pets and animals: No sexually active: Yes do you feel safe at home: Yes victim of physical abuse: No victim of emotional abuse: No victim of sexual abuse: No [facility] Anesthesia Checklist Patient Identification Patient Identification: Arm Band and Verbal (Name & ) Structural Data Admitted From: Inpatient Planned Operative Procedure/s: EPIDURAL FOR l&d ANALGESIA Consent for Planned Operative Procedure(s) Verified: Yes Verified Documents: History and Physical NPO Status Verified Time NPO: 00:00 Chart Verification Results Verified: H & H Additional verifications Patient : Yes Anesthesia Reactions: No Cardiovascular Assessment Peripheral Edema: Yes Airway Assessment C-Spine Mobility Assessed: Yes TMJ Mobility Assessed: Yes Dentition: Good Dentition Neurological Assessment Level of Consciousness: Awake Hx Seizures: No Anesthesia Plan Anesthesia Risk discussed: Yes ASA Class: II Anesthesia Type: Epidural
--- NOTE | 2022-12-05 13:44 | EXP.LABOR.NO ---
Labor Note Subjective: Date: 12/05/22 Time: 12:05 regular contraction Objective: NST:: Reactive Contractions:: every 2-3 minutes Cervical Dilation:: 4-5 Effacement:: 75% Station: -1 Membranes: artificially ruptured Fetus: Monitoring?: Yes monitoring type:: Internal and External Assessment: Labor progressing?: Yes Cephalopelvic disproportion?: No Plan: Anesthesia for epidural?: Yes Continue to labor down?: Yes Plan for ?: No Continue to monitor?: Yes Start pushing?: No Comment:: She is doing well. The cervix is 4 cm stretchy to 5.
--- NOTE | 2022-12-05 13:45 | EXP.LABOR.NO ---
Labor Note Subjective: Date: 12/05/22 Time: 13:45 regular contraction Objective: NST:: Reactive Contractions:: every 2-3 minutes Cervical Dilation:: 5 Effacement:: 75% Station: -1 Membranes: artificially ruptured Fetus: Monitoring?: Yes monitoring type:: Internal and External Assessment: Labor progressing?: Yes Cephalopelvic disproportion?: No Plan: Anesthesia for epidural?: Yes Continue to labor down?: Yes Plan for ?: No Continue to monitor?: Yes Start pushing?: No Comment:: She has progressed to good 5 cm. The cervix was quite stretchy. There is some bloody show. We will expect a vaginal delivery.
--- NOTE | 2022-12-05 17:18 | EXP.LABOR.NO ---
Labor Note Subjective: Date: 12/05/22 Time: 17:18 regular contraction Objective: NST:: Reactive Contractions:: every 2-3 minutes Cervical Dilation:: 9-10 Effacement:: 100% Station: +3 Membranes: artificially ruptured Fetus: Monitoring?: Yes monitoring type:: Internal and External Assessment: Labor progressing?: Yes Cephalopelvic disproportion?: No Plan: Anesthesia for epidural?: Yes Continue to labor down?: Yes Plan for ?: No Continue to monitor?: Yes Start pushing?: Yes Continue pushing?: Yes Comment:: She has been pushing for about the last half hour. She is doing very well. It should not be much longer until she delivers.
--- NOTE | 2022-12-05 17:41 | EXP.DN ---
Delivery Note Delivery Date:: 12/05/22 Delivery Time:: 17:32 Anesthesia Type: Epidural Was labor medically induced?: Yes Induction method: per pitocin protocol Gestational age (weeks): 40 delivered prior to 39 weeks?: No Justification for early elective delivery:: Other (Post dates) Gender: Female at 1 minute: 8 at 5 minutes: 9 Delivery Procedure:: She is a 22-year-old 3 para 1 at 40 weeks and 6 days. She was offered induction of labor at [facility]. She was started on IV oxytocin had her membranes ruptured. Under labor epidural she progressed to full dilation. She had been is pushing but ineffectively. As result of that I elected to apply a vacuum. I pulled twice but there were 2 pop offs so I elected to stop this. She then vomited and the baby rapidly progressed during vomiting. She delivered spontaneously a liveborn female child at 5:32 PM in the afternoon of December 05, 2022. On deliver the head the anterior shoulder easily delivered followed by the rest the 's body atraumatically. The baby was vigorous and cried spontaneously. The oropharynx and nasopharynx were bulb suction. We allowed the cord to continue to pulsate for approximately 1 minute. The cord was then doubly clamped and cut and the was handed off to nurses who assigned Apgars of 8 at 1 minute and 9 at 5 minutes. We then obtained cord blood. She received IV oxytocin using gentle traction on the cord and countertraction on the fundus I was able to easily deliver the placenta intact 1 minute after the delivery. It had a normal three-vessel cord. She has a positive blood, she is well immune and was group B streptococcus negative. Estimated blood loss was 200 cc. There were no vaginal or perineal lacerations. Placental Delivery Description: Spontaneous
[2022-12-06 06:59] LABS: Hematocrit 32.5 % (37.0-47.0); Hemoglobin 10.6 g/dL (12.2-16.2)
[2022-12-06 08:03] VITALS: BP 131/81; PULSE 87; RESP 20; TEMP 36.6; O2SAT 98
--- NOTE | 2022-12-06 08:41 | EXP.ACUTE.PN ---
Subjective *Date: 12/06/22 *Time: 08:41 Interval history: She is doing well this morning. She is eating and drinking and ambulating. She is bottlefeeding. Her lochia is normal. Medical Exam Vital signs and Labs for Last 24 Hours: Vital Signs Temp Pulse Resp BP Pulse Ox O2 Del Method 12/06/22 08:03 97.8 F 87 20 131/81 98 Room Air Laboratory Results - last 24 hr 12/06/22 06:45: Hgb 10.6 L, Hct 32.5 L I & O for Labs for Last 24 Hours: Intake & Output 12/03/22 12/04/22 12/05/22 12/06/22 11:59 11:59 11:59 11:59 Weight 148 lb 15.991 oz Microbiology Reports for the Last 24 Hours: Microbiology 12/05/22 05:20 Urine,Clean Catch Urine Culture - Preliminary NO GROWTH AFTER 24 HOURS Head: Present normocephalic ENT: Present normal exam Neck: Present normal inspection Respiratory: Present normal respiratory effort; Absent accessory muscle use Assessment and Plan *Assessment and plan (1) Post-dates , delivered, current hospitalization: Status: Acute Category: Medical Code(s): O48.0 - Post-term (2) Normal delivery: Status: Acute Category: Medical Code(s): O80 - Encounter for full-term uncomplicated delivery Plan She is doing very well this morning. She is eating and drinking and ambulating. She is bottlefeeding. We will plan to send her home tomorrow.
[2022-12-06 16:20] VITALS: BP 142/104; PULSE 83; RESP 18; TEMP 36.6; O2SAT 98
[2022-12-06 18:47] VITALS: BP 144/98
[2022-12-07] VITALS (19 sets, daily range): BP systolic 118–146; BP diastolic 77–109; PULSE 77–106; RESP 16–20; TEMP 36.6; O2SAT 96–100
--- NOTE | 2022-12-07 08:37 | P.PN_ITS ---
Subjective *Date: 12/07/22 *Time: 08:37 Interval history: She is doing well but her blood pressure remains elevated. It is in the 140s over 102 range. I started her on nifedipine yesterday and despite this her blood pressure remains elevated. I am going to go ahead and start magnesium s ulfate for the next 24 hours since she does have brisk reflexes and a mild headache. She also says she has floaters in front of her eyes. We will also change from nifedipine to labetalol 200 twice daily. Medical Exam Vital signs and Labs for Last 24 Hours: Vital Signs Temp Pulse Resp BP Pulse Ox O2 Del Method 12/06/22 16:20 97.9 F 83 18 142/104 H 98 Room Air 12/06/22 18:47 144/98 H I & O for Labs for Last 24 Hours: Intake & Output 12/04/22 12/05/22 12/06/22 12/07/22 11:59 11:59 11:59 11:59 Weight 148 lb 15.991 oz Microbiology Reports for the Last 24 Hours: Microbiology 12/05/22 05:20 Urine,Clean Catch Urine Culture - Final NO GROWTH AFTER 48 HOURS Head: Present atraumatic and normocephalic ENT: Present normal exam Neck: Present normal inspection Respiratory: Present normal respiratory effort; Absent accessory muscle use Neuro: Present alert, awake and oriented x 3 Comment:: He reflexes are brisk. There is no clonus Assessment and Plan *Assessment and plan (1) Post-dates , delivered, current hospitalization: Status: Acute Category: Medical Code(s): O48.0 - Post-term (2) Normal delivery: Status: Acute Category: Medical Code(s): O80 - Encounter for full-term uncomplicated delivery (3) PIH ( induced hypertension): Status: Acute Qualifiers: Trimester: unspecified trimester Qualified Code(s): O13.9 - Gestational [-induced] hypertension without significant proteinuria, unspecified trimester Category: Medical Code(s): O13.9 - Gestational [-induced] hypertension without significant proteinuria, unspecified trimester Plan We will go ahead and start magnesium sulfate. We are going to switch to labetalol from nifedipine. We will plan to keep her at least another 24 hours. We will get PIH blood work as well.
[2022-12-07 09:36] LABS: Basophils # 0.1 K/mm3 (0-0.2); Basophils % 0.5 % (0.1-2.0); Eosinophils # 0.2 K/mm3 (0.0-0.4); Eosinophils % 1.7 % (0.1-12.0); Hematocrit 35.8 % (37.0-47.0); Hemoglobin 11.4 g/dL (12.2-16.2); Lymphocytes # 2.8 K/mm3 (0.7-4.5); Lymphocytes % 20.3 % (10-50); Mean Corpuscular HGB Conc 31.7 g/dL (31.8-35.4); Mean Corpuscular Volume 75.6 fl (81-99); Mean Platelet Volume 8.3 fl (7.4-10.4); Monocytes % 6.8 % (1.7-9.3); Neutrophils # 9.9 K/mm3 (1.8-7.8); Neutrophils % 70.7 % (37.0-80.0); Platelet Count 259 K/mm3 (142-424); Red Blood Count 4.74 M/mm3 (4.20-5.40); Red Cell Distribution Width 22.1 % (11.5-17.5); White Blood Count 13.9 K/mm3 (4.8-10.8)
[2022-12-07 10:01] LABS: D-Dimer 1.46 ug/mL (0.0-0.5)
[2022-12-07 10:02] LABS: Activated Partial Thrombo Time 26.7 seconds (22.8-30.6); Fibrinogen 532 mg/dL (229.9-363.5); INR 0.85 (0.9-1.1); Prothrombin Time 9.3 seconds (10.1-12.5)
[2022-12-07 10:54] LABS: Magnesium 1.4 mg/dl (1.6-2.3)
[2022-12-07 11:18] LABS: Chloride 104 mmol/L (98-107)
[2022-12-07 11:19] LABS: Potassium 3.6 mmoL/L (3.5-5.1); Sodium 138 mmol/L (136-145)
[2022-12-07 11:21] LABS: Alanine Aminotransferase 19 U/L (12-78); Aspartate Amino Transferase 46 U/L (14-36); Blood Urea Nitrogen 7 mg/dl (7-17); Creatinine Clearance Estimated 133 mL/min (50-200); Estimated Glomerular Filt Rate 104 ml/min (>60); GFR (African American) 125 ML/MIN (>60)
[2022-12-07 11:22] LABS: Calcium 9.2 mg/dl (8.4-10.2); Glucose 105 mg/dl (74-100)
[2022-12-07 11:36] LABS: Uric Acid 3.7 mg/dl (2.5-6.2)
[2022-12-07 12:56] LABS: Anion Gap 12.6 mEq/L (5-15); Carbon Dioxide 25 mmol/L (22.0-30.0)
[2022-12-07 16:41] LABS: Magnesium 6.6 mg/dl (1.6-2.3)
[2022-12-08 03:26] VITALS: BP 108/70; PULSE 68; RESP 16; O2SAT 98
[2022-12-08 06:53] LABS: Basophils # 0.1 K/mm3 (0-0.2); Basophils % 0.4 % (0.1-2.0); Eosinophils # 0.3 K/mm3 (0.0-0.4); Eosinophils % 2.7 % (0.1-12.0); Hematocrit 38.2 % (37.0-47.0); Lymphocytes % 23.5 % (10-50); Mean Corpuscular HGB Conc 31.5 g/dL (31.8-35.4); Mean Corpuscular Hemoglobin 24.4 pg (27.0-31.2); Mean Corpuscular Volume 77.5 fl (81-99); Mean Platelet Volume 8.5 fl (7.4-10.4); Monocytes # 0.9 K/mm3 (0.1-1.0); Monocytes % 6.8 % (1.7-9.3); Neutrophils # 8.4 K/mm3 (1.8-7.8); Neutrophils % 66.6 % (37.0-80.0); Platelet Count 290 K/mm3 (142-424); Red Blood Count 4.93 M/mm3 (4.20-5.40); Red Cell Distribution Width 22.5 % (11.5-17.5); White Blood Count 12.6 K/mm3 (4.8-10.8)
[2022-12-08 07:03] LABS: Activated Partial Thrombo Time 26.5 seconds (22.8-30.6); Fibrinogen 456 mg/dL (229.9-363.5); INR 0.81 (0.9-1.1); Prothrombin Time 8.9 seconds (10.1-12.5)
[2022-12-08 07:11] LABS: Alanine Aminotransferase 21 U/L (12-78); Anion Gap 11.3 mEq/L (5-15); Aspartate Amino Transferase 50 U/L (14-36); Blood Urea Nitrogen 7 mg/dl (7-17); Calcium 7.4 mg/dl (8.4-10.2); Carbon Dioxide 27 mmol/L (22.0-30.0); Chloride 103 mmol/L (98-107); Creatinine Clearance Estimated 156 mL/min (50-200); Estimated Glomerular Filt Rate 124 ml/min (>60); GFR (African American) 150 ML/MIN (>60); Glucose 86 mg/dl (74-100); Potassium 3.3 mmoL/L (3.5-5.1); Sodium 138 mmol/L (136-145); Uric Acid 4.2 mg/dl (2.5-6.2)
[2022-12-08 07:15] LABS: D-Dimer 1.16 ug/mL (0.0-0.5)
--- NOTE | 2022-12-08 09:43 | EXP.DC.SUM ---
General Admission date:: 12/05/22 Discharge date: 12/08/22 HPI HPI HPI: She is a 22-year-old 3 para 1 aborta 1 at 40 weeks and 6 days. As result of that she is admitted for induction of labor at term. She has a positive blood, she is rubella immune and group B streptococcus negative. Hospital Course Hospital Course Hospital Course: On December 05, 2022 she was started on IV oxytocin and progressed under labor epidural to full dilation. She delivered spontaneously a liveborn female child in the afternoon. The baby weighed 8 pounds 15 ounces and was 20 inches long. She had Apgars of 8 at 1 minute and 9 at 5 minutes. She has done well postoperatively and has remained afebrile throughout her hospitalization. She started to have some elevation in her blood pressure and 2 days she had blood pressures in the 140/105 range. As result of that I started her on magnesium sulfate. She was also started on labetalol 200 mg twice daily. Subsequently her blood pressures remain slightly elevated so we added nifedipine 30 mg XL. Her blood pressures are now in the 130s over 80s range. She denies any headache or scotomata. She had been feeling unwell and did have scored a moderate as well as mild headache. She will be discharged home today to follow-up with me in about 5 days time. She will continue with her vitamins and iron. She was given a prescription for labetalol 200 mg twice daily as well as nifedipine 30 mg XL. She has a positive blood, she is rubella immune and was group B streptococcus negative. Her condition on discharge is stable and improved. Exam Data for Last 24 hours Vital signs and Labs for Last 24 Hours: Temp Pulse Resp BP Pulse Ox O2 Del Method 97.8 F 68 16 108/70 L 98 Room Air 12/07/22 19:31 12/08/22 03:26 12/08/22 03:26 12/08/22 03:26 12/08/22 03:26 12/08/22 03:26 Laboratory Results - last 24 hr 12/07/22 09:05: PT 9.3 L, INR 0.85 L, APTT 26.7, Fibrinogen 532 H, D-Dimer 1.46 H, Sodium 138, Potassium 3.6, Chloride 104, Carbon Dioxide 25, Anion Gap 12.6, BUN 7, Creatinine 0.70, Estimated Creat Clear 133, Estimated GFR 104, Est GFR ( Amer) 125, Glucose 105 H, Uric Acid 3.7, Calcium 9.2, Magnesium 1.4 L, AST 46 H, ALT 19 12/07/22 13:00: Urine Total Protein 22.0 H 12/07/22 16:11: Magnesium 6.6 H D 12/08/22 06:35: WBC 12.6 H, RBC 4.93, Hgb 12.0 L, Hct 38.2, MCV 77.5 L, MCH 24.4 L, MCHC 31.5 L, RDW 22.5 H, Plt Count 290, MPV 8.5, Neut % (Auto) 66.6, Lymph % (Auto) 23.5, [place] % (Auto) 6.8, Eos % (Auto) 2.7, Baso % (Auto) 0.4, Neut # (Auto) 8.4 H, Lymph # (Auto) 3.0, [place] # (Auto) 0.9, Eos # (Auto) 0.3, Baso # (Auto) 0.1, PT 8.9 L, INR 0.81 L, APTT 26.5, Fibrinogen 456 H, D-Dimer 1.16 H, Sodium 138, Potassium 3.3 L, Chloride 103, Carbon Dioxide 27, Anion Gap 11.3, BUN 7, Creatinine 0.60, Estimated Creat Clear 156, Estimated GFR 124, Est GFR ( Amer) 150, Glucose 86, Uric Acid 4.2, Calcium 7.4 L, AST 50 H, ALT 21 I & O for Last 24 hours: Intake & Output 12/05/22 12/06/22 12/07/22 12/08/22 11:59 11:59 11:59 11:59 Output Total 900 / 900 5000 / 5000 Balance -900 / -900 -5000 / -5000 Weight 148 lb 15.991 oz Microbiology Reports for the Last 24 Hours: Microbiology 12/05/22 05:20 Urine,Clean Catch Urine Culture - Final NO GROWTH AFTER 48 HOURS Constitutional Constitutional: no acute distress *Routine HEENT Exam Head: Present normocephalic *Routine Neck Exam Neck: Present full ROM *Routine Neurological Exam Neurological: Present alert and oriented X3 Routine Psychiatric Exam Psychiatric: Present normal affect Results Data Completed and Pending Labs on day of discharge: Labs from last 24 hours 12/08/22 12/07/22 12/07/22 06:35 16:11 13:00 WBC 12.6 H RBC 4.93 Hgb 12.0 L Hct 38.2 MCV 77.5 L MCH 24.4 L MCHC 31.5 L RDW 22.5 H Plt Count 290 MPV 8.5 Neut % (Auto) 66.6 Lymph
== END 2022-12-08 14:50 | disposition home or self-care (01) | DRG 807 ==
PROVIDERS: Admitting Provider Nurse Practitioner Obstetrics & Gynecology; PCP Internal Medicine; Visit Provider Nurse Practitioner Obstetrics & Gynecology
DX: O13.5 Gestational [pregnancy-induced] hypertension without significant proteinuria, complicating the puerperium (principal); Z37.0 Single live birth; Z3A.40 40 weeks gestation of pregnancy
CPT/HCPCS: 59409; 36415; 59025; 80048; 80305; 81001; 83735; 84155; 84450; 84460; 84550; 85014; 85018; 85025; 85378; 85384; 85610; 85730; 86850; 87086; 94761; C1758; G0283

== ENCOUNTER → 2023-01-31 15:18 | Outpatient (CLI) | payer OTHER, SELFPAY ==
[2023-01-31 15:23] LABS: MANUAL DIFFERENTIAL MANUAL DIFFERENTIAL (MANUAL DIFF)
[2023-01-31 15:45] LABS: Basophils # 0.1 K/mm3 (0-0.2); Basophils % 1.2 % (0.1-2.0); Eosinophils # 0.6 K/mm3 (0.0-0.4); Eosinophils % 6.8 % (0.1-12.0); Hematocrit 42.4 % (37.0-47.0); Hemoglobin 13.5 g/dL (12.2-16.2); Lymphocytes # 3.1 K/mm3 (0.7-4.5); Lymphocytes % 36.9 % (10-50); Mean Corpuscular HGB Conc 31.9 g/dL (31.8-35.4); Mean Corpuscular Hemoglobin 25.9 pg (27.0-31.2); Mean Corpuscular Volume 81.2 fl (81-99); Mean Platelet Volume 7.2 fl (7.4-10.4); Monocytes # 0.6 K/mm3 (0.1-1.0); Monocytes % 6.9 % (1.7-9.3); Neutrophils % 48.2 % (37.0-80.0); Platelet Count 434 K/mm3 (142-424); Red Blood Count 5.22 M/mm3 (4.20-5.40); Red Cell Distribution Width 16.7 % (11.5-17.5); White Blood Count 8.4 K/mm3 (4.8-10.8)
[2023-01-31 17:35] LABS: Eosinophils % 5 % (0-3); Lymphocytes % 47 % (10-50); Monocytes % 4 % (2-9); Neutrophils % 44 % (42-76); RBC Morphology Normal; Total Cells Counted 100
[2023-01-31 17:36] LABS: Platelet Estimate Normal
== END ==
PROVIDERS: PCP Internal Medicine; Visit Provider Obstetrics & Gynecology
DX: D64.9 Anemia, unspecified (principal)
CPT/HCPCS: 36415; 85007; 85014; 85018; 85048; 85049

== ENCOUNTER 2024-07-09 19:11 | Outpatient (CLI) | payer OTHER, SELFPAY ==
[2024-07-09 17:57] LABS: Basophils # 0.1 K/mm3 (0-0.2); Basophils % 1.1 % (0.1-2.0); Eosinophils # 0.2 K/mm3 (0.0-0.4); Eosinophils % 2.8 % (0.1-12.0); Hematocrit 32.5 % (37.0-47.0); Hemoglobin 9.8 g/dL (12.2-16.2); Lymphocytes # 2.5 K/mm3 (0.7-4.5); Lymphocytes % 39.8 % (10-50); Mean Corpuscular HGB Conc 30.2 g/dL (31.8-35.4); Mean Corpuscular Hemoglobin 20.6 pg (27.0-31.2); Mean Corpuscular Volume 68.3 fl (81-99); Mean Platelet Volume 9.7 fl (7.4-10.4); Monocytes # 0.6 K/mm3 (0.1-1.0); Monocytes % 9.4 % (1.7-9.3); Neutrophils # 2.9 K/mm3 (1.8-7.8); Neutrophils % 46.9 % (37.0-80.0); Platelet Count 543 K/mm3 (142-424); Red Blood Count 4.76 M/mm3 (4.20-5.40); Red Cell Distribution Width 19.4 % (11.5-17.5); White Blood Count 6.2 K/mm3 (4.8-10.8)
[2024-07-09 18:04] LABS: Alanine Aminotransferase 15 U/L (12-78); Albumin Level 4.4 g/dl (3.5-5.0); Albumin/Globulin Ratio 1.6 (1.1-1.8); Alkaline Phosphatase 54 U/L (38-126); Anion Gap 8.8 mEq/L (5-15); Aspartate Amino Transferase 24 U/L (14-36); Bilirubin,Total 0.4 mg/dl (0.2-1.3); Blood Urea Nitrogen 7 mg/dl (7-17); Carbon Dioxide 28 mmol/L (22.0-30.0); Chloride 104 mmol/L (98-107); Estimated Glomerular Filt Rate 123 ml/min (>60); GFR (African American) 149 ML/MIN (>60); Globulin 2.7 g/dL (1.3-3.2); Glucose 65 mg/dl (74-100); Potassium 3.8 mmoL/L (3.5-5.1); Sodium 137 mmol/L (136-145); Total Protein,Serum 7.1 g/dl (6.3-8.2)
[2024-07-09 18:21] LABS: Free T4 (Free Thyroxine) 1.06 ng/dl (0.78-2.19)
[2024-07-10 11:05] LABS: Iron 26 ug/dL (37-170)
[2024-07-10 11:14] LABS: Total Iron Binding Capacity 455 ug/dL (265-497)
== END 2024-07-09 23:59 | disposition home or self-care (01) ==
LOC: LAB.DROPOF 19:12
PROVIDERS: PCP Internal Medicine; Visit Provider Internal Medicine
DX: D64.9 Anemia, unspecified (principal); R53.83 Other fatigue; F41.9 Anxiety disorder, unspecified; F32.A Depression, unspecified; G43.909 Migraine, unspecified, not intractable, without status migrainosus; D50.9 Iron deficiency anemia, unspecified
CPT/HCPCS: 80053; 83540; 83550; 84439; 84443; 85025

== ENCOUNTER 2025-01-29 12:28 | Outpatient (CLI) | payer OTHER, SELFPAY ==
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
--- OUTSIDE RECORDS SUMMARY | 2025-01-29 12:32 | XMS_ITS | Encounter Summary ---
Author Organization [facility] Address [address] [place] [id number] Phone [email or web address] Care Team Providers Care Camp Manager Name Role Phone Sreekanth Monique Primary Care Provider Unavailabl e Reason for Visit * Reason Onset Date Comments Return to Work / Duty 01/06/2025 CASE UPDAT E/COMMUNICATION- [facility]- TTD Encounter Details Date Type Department Care Team (Late st Contact Info) Description 01/06/2025 Documentation [place] [id number] [facility] [address] [place] [address] [place], [place] [address] [place] [address] Social History Tobacco Use Types Packs/Day Years Used Date Smoking Tobacco: Never Smokeless Tobacco: Never Intimate Partner Violence Answer Date R ecorded Insults You Not on file 10/22/2021 Threatens You Not on file 10/22/2021 Screams at You Not on file 10/22/2021 Physically Hurt Not on file 10/22/2021 Intimate Partner Violence Score Not on file 10/22/2021 Depression Answer Date Recorded PHQ Total Score 0 09/09/2024 Stress Answer Date Recorded Stress in your Life Not on file 03/18/2024 Dealing with Stress 3 03/18/2024 Comments Unknown Sex and Gender Information Value Date Recorded Sex Assigned at Female 10/05/2023 8:08 AM CDT Legal Sex Female 5:08 PM CDT Gender Identity Female 10/05/2023 8:08 AM CDT Sexual Orientation Not on file documented as of this encounter Progress Notes * Nadiya Mason MA - 01/06/2025 7:44 AM EDT TM is no longer eligible for TTD. 

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
--- OUTSIDE RECORDS SUMMARY | 2025-01-29 12:32 | XMS_ITS | Encounter Summary ---
Author Organization [facility] Address [address] [place] [address] Phone [email or web address] [email or web address] Care Team Providers Care Aerospace Assembler Name Role Phone Sreekanth Monique Primary Care Provider Unavailabl e Reason for Visit * Reason Onset Date Comments Care Coordination 01/01/2025 Encounter Details Date Type Department Care Team (Late st Contact Info) Description 01/01/[address] [place] [address] Florinda Schwartz RN [address] [place] [address] Social History Tobacco Use Types [...] as of this encounter Progress Notes * Florinda Schwartz RN - 01/01/2025 2:38 PM EDT Images from the original note were not included. documented in this encounter Plan of Treatment Not on file documented as of this encounter Visit Diagnoses Not on filedocumented in this encounter Care Teams Aerospace Assembler Relationship Specialty [place] [address] PCP - General Piledriver Carpenter 04/12/22 documented as of this encounter
--- OUTSIDE RECORDS SUMMARY | 2025-01-29 12:32 | XMS_ITS | Encounter Summary ---
Author Organization [facility] Address [address] [place] [address] Phone [email or web address] [email or web address] Care Team Providers Care Engine Lathe Set Up Operator Name Role Phone Sreekanth Monique Primary Care Provider Unavailabl e Reason for Visit * Reason Onset Date Comments Care Coordination 12/23/2024 Encounter Details Date Type Department Care Team (Late st Contact Info) Description 12/23/[address] [place] [address] Florinda Schwartz RN [address] [place] [address] Social History Tobacco Use Types [...] Progress Notes * Florinda Schwartz RN - 12/23/2024 3:23 PM EDT Images from the original note were not included. documented in this encounter Plan of Treatment Not on file documented as of this encounter Visit Diagnoses Not on filedocumented in this encounter Care Teams Engine Lathe Set Up Operator Relationship Specialty [place] [address] PCP - General Supervisor Steel Division 04/12/22 documented as of this encounter
--- OUTSIDE RECORDS SUMMARY | 2025-01-29 12:32 | XMS_ITS | Encounter Summary ---
Author Organization [facility] Address [address] [place] [address] Phone CareEverywhereSuppor [email or web address] Care Team Providers Care Literacy Consultant Name Role Phone KaydenRejit Primary Care Provider Unavailabl e Encounter Details Date Type Department Care Team (Late st Contact Info) Description 12/31/2024 Telephone [facility] [place] [address] Clinic [address] [place] [address] Florinda Schwartz RN [address] [facility] [place] [address] Social History Tobacco Use Types [...] on file documented as of this encounter Miscellaneous Notes * Telephone Encounter - Florinda Schwartz RN - 12/31/2024 2:33 PM EDT Nurse information manager note for follow up call. 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 The pop resulted in a brief sharp discomfort with a radiating discomfort running into the medial upper arm. Dx: 1. Neck and shoulder pain M54.2 M25.519 2. Medial epicondylitis of left elbow M77.02 3. Cubital tunnel syndrome on left G56.22 Date of Injury: 08/19/2024 Current plan of care: TM is treating with 2 different specialist- Dr Burks is treating for left shoulder and Dr Alejandre treating for left elbow 11/22/24- Follow up with Dr Burks to discuss MRI of shoulder; reviewed specialist note MRI findings normal. She reports specialist wants her to continue PT to strengthen her shoulder 11/04/24- EMG/NCV with positive ultrasound showing ulnar nerve subluxation over the medial epicondyle 12/03/24- Dr Larose and advised to remain restricted and recommends surgery for Cubital tunnel release and ulnar nerve subluxation- pending approval. 12/19/24- Begins PT for left shoulder at [facility]. 12/31/24- TM reports she was notified by [facility] that surgery will not be covered and TTD ended 12/22/24. 01/01/25 surgery cancelled. TM is litigated. Clinic Provider: KAITLYNN Carroll [phone] F/U Call Notes: PC from for update. TM states she is no longer having surgery tomorrow. TM states she was notified by Laurie Jay that they will not be covering surgery or paying TTD any longerdue to Tms settlement terms with another WC claim. TM notified that case management has ended sinceshe is not receiving TTD any longer and to contact [facility] if TTD resumes at some point. TM is litigated. TM given [employer] contact information and advised to call [phone] once released to RTW otherwise. Email sent to Laurie Jay requesting update on above- Verifies that surgery will not be covered and TTD ended 12/22/24. Last Specialist Visit: 12/03/24 Next Specialist Visit: 01/01/25 left elbow surgery; 01/03/25 Dr Burks for left shoulder District Plant Engineer Plan/Goals: TM to keep scheduled apts TM to call with updates or changes Continue following plan of care per specialist TM no longer receiving TTD and no longer meets criteria outlined by their employer for nurse case management and so will now follow up closely with the onsite clinic as discussed above going forward regarding this injury. They will continue to follow up with their TMR as needed. Conclusion: -Advised TM to contact [employer]. -TM verbalized knowledge of next steps/appointments. -E-mail sent to worker's comp rep regarding: Last TTD date. -TM has no further concerns at this time. District Plant Engineer Signature: Florinda Schwartz RN Date: 12/31/24 documented in this encounter Plan of Treatment Not on file documented as of this encounter Visit Diagnoses Not on filedocumented in this encounter Care Teams Literacy Consultant Relationship Specialty [place] [address] PCP - General Commodity Loan Clerk 04/12/22 documented as of this encounter
--- OUTSIDE RECORDS SUMMARY | 2025-01-29 12:32 | XMS_ITS | Encounter Summary ---
Author Organization [facility] Address [address] [place] [address] Phone [email or web address] [email or web address] Care Team Providers Care Sewing Machines Salesperson Name Role Phone Sreekanth Monique Primary Care Provider Unavailabl e Reason for Visit * Reason Onset Date Comments Care Coordination 12/12/2024 Encounter Details Date Type Department Care Team (Late st Contact Info) Description 12/12/2024 Telephone [facility] 1999 Clinic [address] [place] [address] Florinda Schwartz RN [address] [place] [address] Social History Tobacco Use Types [...] Miscellaneous Notes * Telephone Encounter - Florinda Schwartz, JAVIER - 12/12/2024 9:21 AM EDT Nurse staffing manager note for follow up call. 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 Clinic Provider: KAITLYNN Carroll [phone] F/U Call Notes: PC to TM for update after update from Laurie Jay that left shoulder PT has beenapproved and surgery request was sent to pre cert. TM states she was contacted by [facility] and scheduled for PT on left shoulder 12/19/24. TM will call with updates. Last Specialist Visit: 12/03/24 Next Specialist Visit: 01/03/25 Dr Burks for left shoulder; Pending surgery for left elbow Director Correctional Agency Plan/Goals: TM to keep scheduled apts TM to call with updates or changes Continue following plan of care per specialist Conclusion: -TM to call back with updates and changes or as needed. -TM verbalized knowledge of next steps/appointments. -TM has no further concerns at this time. Director Correctional Agency Signature: Florinda Schwartz RN Date: 12/12/24 documented in this encounter Plan of Treatment Not on file documented as of this encounter Visit Diagnoses Not on filedocumented in this encounter Care Teams Sewing Machines Salesperson Relationship Specialty [place] [address] PCP - General Powerhouse Electrician Apprentice 04/12/22 documented as of this encounter
--- OUTSIDE RECORDS SUMMARY | 2025-01-29 12:32 | XMS_ITS | Encounter Summary ---
Author Organization [facility] Address [address] [place] [address] Phone [email or web address] [email or web address] Care Team Providers Care Collar Tailor Name Role Phone Sreekanth Monique Primary Care Provider Unavailabl e Reason for Visit * Reason Onset Date Comments Return to Work / Duty 12/09/2024 CASE UPDAT E/COMMUNICATION- WMLOA-RD Encounter Details Date Type Department Care Team (Late st Contact Info) Description 12/09/2024 Documentation [place] [address] [address] [place] [address] [place], [place] [address] [place] [address] Social History Tobacco Use Types [...] Progress Notes * Nadiya Mason MA - 12/09/2024 1:03 PM EDT TM on WMLOA beginning 12.09.2024- Sent home based on restricted days for LEFT SHOULDER, UPPER ARM, ELBOW CASE #[id number] DOI - 08.19.2024 documented in this encounter Plan of Treatment Not on file documented as of this encounter Visit Diagnoses Not on filedocumented in this encounter Care Teams Collar Tailor Relationship Specialty [place] [address] PCP - General Operations Boardman 04/12/22 documented as of this encounter
--- OUTSIDE RECORDS SUMMARY | 2025-01-29 12:32 | XMS_ITS | Encounter Summary ---
Author Organization [facility] Address [address] [place] [address] Phone [email or web address] [email or web address] Care Team Providers Care Career Counselor Name Role Phone Sreekanth Monique Primary Care Provider Unavailabl e Reason for Visit * Reason Onset Date Comments Care Coordination 12/23/2024 Encounter Details Date Type Department Care Team (Late st Contact Info) Description 12/23/[address] [place] [address] Florinda Schwartz RN [address] [place] [address] Social History Tobacco Use Types [...] Notes * Florinda Schwartz RN - 12/23/2024 2:38 PM EDT Images from the original note were not included. documented in this encounter Plan of Treatment Not on file documented as of this encounter Visit Diagnoses Not on filedocumented in this encounter Care Teams Career Counselor Relationship Specialty [place] [address] PCP - General Finished Cloth Examiner 04/12/22 documented as of this encounter
--- OUTSIDE RECORDS SUMMARY | 2025-01-29 12:32 | XMS_ITS | Clinical Summary ---
Author Organization [facility] Address [address] [place] [address] Phone CareMaeglin [email or web address] [email or web address] Care Team Providers Care Director Hr Communications Name Role Phone Sreekanth Monique Primary Care Provider Unavailabl e Allergies Active Allergy Reactions Criticality Noted Date Comments Adhesive Rash Low 01/10/2018 Penicillins Rash Low 06/28/2017 Medications Multiple Vitamin (multivitamin) tablet Take 1 tablet by mouth 1 (one) time each day. Women's vitamins Active OMEPRAZOLE PO Take by mouth. Active Vit-Fe Fumarate-FA ( PO) Take by mouth. Active sertraline (ZOLOFT) 50 MG tablet Take 50 mg by mouth 1 (one) time each day. 10/06/2023 Active Active Problems Problem Noted Date Diagnosed Date Return to work evaluation 05/17/2022 12 weeks gestation of 05/17/2022 Encounters Date Type Department Care Team Description 01/06/[address] [facility] [address] [address] Nadiya Mason MA 01/01/[address] [facility] [address] [address] Florinda Schwartz RN 12/31/2024 [facility]phone [facility] [place] [address] [address] Florinda Schwartz RN 12/25/[address] [facility] [address] [facility] [place] [facility] [place] [address] Florinda Schwartz, JAVIER 12/23/2024 Documentation [place] [address] [address] [place] [address] Florinda Schwartz, JAVIER 12/23/[address] [facility] [address] [facility] [place] [facility] [place] [phone] Florinda Schwartz, JAVIER 12/23/2024 Telephone [place] [address] [facility] [address] [facility] [place] [facility] [place] [address] Florinda Schwartz, JAVIER 12/19/2024 Telephone [place] [address] [address] [facility] [place] [facility] [place] [address] Florinda Schwartz, JAVIER 12/12/2024 Telephone [place] [address] [address] [place] [address] Florinda Schwartz, JAVIER 12/11/2024 Telephone [place] [address] [address] [place] [address] Florinda Schwartz, RN 12/09/2024 Documentation [place] [address] Clinic [address] [place] [address] Nadiya Mason MA from Last 3 Months Social History Tobacco Use Types Packs/Day Years Used Date Smoking Tobacco: Never Smokeless Tobacco: Never Tobacco Cessation:Counseling Given: Not Answered Intimate Partner Violence Answer Date R ecorded [...] AM CDT Sexual Orientation Not on file Last Filed Vital Signs Vital Sign Reading Time Taken Comments Blood Pressure 125/84 12/03/2024 10:29 PM EDT Pulse 99 12/03/2024 10:29 PM EDT Temperature 36.6 C (97.8 F) 09/09/2024 10:27 PM EDT Respiratory Rate 18 12/03/2024 10:29 PM EDT Oxygen Saturation 99% 12/03/2024 10:29 PM EDT Inhaled Oxygen Concentration - - Weight 52.9 kg (116 lb 9.6 oz) 09/09/2024 10:27 PM EDT Height 165.1 cm (5' 5 ) 09/09/2024 10:27 PM EDT Body Mass Index 19.4 09/09/2024 10:27 PM EDT Plan of Treatment Health Maintenance Due Date Last Done Comments Cervical Cancer Screening Combo 1999 Dental Cleaning/Exam 1999 HIV Screening 1999 HPV / Cotest 1999 Hepatitis C Screening 1999 Pap Testing 1999 Hepatitis B Immunization (3 of 3 - 3-dose series) 01/19/2001 11/24/2000, 01/13/2000 HPV Immunization (1 - 3-dose series) 11/10/2014 Hep B Infection Screening - Triple Screen 11/10/2017 Tetanus Diphtheria and Pertussis Immunization (7 - Td or Tdap) 08/21/2021 08/22/2011, 11/14/2003, 07/09/2002, Additional history exists Annual Preventive Exam 10/22/2022 10/22/2021 Covid-19 Immunization ( - season) 2025 Influenza Immunization (#1) 2025 HIB Immunization Completed 11/24/2000, 06/1999, 01/13/2000 Pneumococcal: Ped (0 to 5 Yrs) and At-Risk Member (6 to 64 Yrs) Aged Out 07/09/2002, 08/17/2000, 06/16/2000 No longer eligible based on patient's age to complete this topic Polio Immunization Completed 11/14/2003, 0 11/24/2000, 06/16/2000, Additional history exists Meningococcal Immunization Aged Out 08/22/2011 N o longer eligible based on patient's age to complete this topic Varicella Immunization Completed 08/22/2011, 2000 Hepatitis A Immunization Aged Out No longer eligible based on patient's age to complete this topic Men B Immunization Aged Out No longer eligible based on patient's age to complete this topic Insurance OPT OUT NO COPAY NB Care Teams Director Hr Communications Relationship Specialty [place] [address] PCP - General Dampener Operator 04/12/22
--- OUTSIDE RECORDS SUMMARY | 2025-01-29 12:32 | XMS_ITS | Encounter Summary ---
Author Organization [facility] Address [address] [place] [address] Phone CareEverywhereSuppor [email or web address] Care Team Providers Care Informatica Developer Name Role Phone Sreekanth Monique Primary Care Provider Unavailabl e Reason for Visit * Reason Onset Date Comments Care Coordination 12/19/2024 Encounter Details Date Type Department Care Team (Late st Contact Info) Description 12/19/2024 Telephone [facility] 1999 Clinic [address] [place] [address] Florinda Schwartz RN [address] [place] [address] Social History Tobacco Use Types [...] Telephone Encounter - Florinda Schwartz RN - 12/19/2024 10:08 AM EDT Nurse circulation manager note for follow up call. 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 Clinic Provider: KAITLYNN Carroll [phone] F/U Call Notes: PC to TM for update on surgery approval for left elbow. TM states she reached out to Dr Larose office yesterday and was told they are still waiting on approval. States she called Laurie Jay with no answer. TM begins PT on shoulder today. TM advised to reach back out to adjustor and be sure to leave a message. Email sent to Laurie Jay for an update on surgery approval. Last Specialist Visit: 12/03/24 Next Specialist Visit: 01/03/25 Dr Burks for left shoulder; Pending surgery for left elbow Vice President Of Recruiting Plan/Goals: TM to keep scheduled apts TM to call with updates or changes Continue following plan of care per specialist Conclusion: -TM to call back with updates and changes or as needed. -TM verbalized knowledge of next steps/appointments. -TM has no further concerns at this time. Vice President Of Recruiting Signature: Florinda Schwartz RN Date: 12/19/24 documented in this encounter Plan of Treatment Not on file documented as of this encounter Visit Diagnoses Not on filedocumented in this encounter Care Teams Informatica Developer Relationship Specialty [place] [address] PCP - General Tax Record Clerk 04/12/22 documented as of this encounter
--- OUTSIDE RECORDS SUMMARY | 2025-01-29 12:32 | XMS_ITS | Encounter Summary ---
Author Organization [facility] Address [address] [place] [address] Phone CareEverywhereSuppor [email or web address] Care Team Providers Care Seamless Tube Roller Name Role Phone Sreekanth Monique Primary Care Provider Unavailabl e Reason for Visit * Reason Onset Date Comments Care Coordination 12/23/2024 Encounter Details Date Type Department Care Team (Late st Contact Info) Description 12/23/2024 Telephone [facility] 1999 Clinic [address] [place] [address] Florinda Schwartz RN [address] [place] [address] Social History Tobacco Use Types [...] Telephone Encounter - Florinda Schwartz RN - 12/23/2024 2:32 PM EDT Nurse emergency medical service manager note for follow up call. 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 Clinic Provider: KAITLYNN Carroll [phone] F/U Call Notes: PC to TM for update on surgery. TM states she was notified that surgery was approved but that they are are unsure if TTD will continue due to TM recently closing case with [employer] for right arm which may prevent her from getting benefits for left arm. TM states they spoke with her family law attorney and was told they should be able to receive benefits for this injury. TM states she is not repre sented for this claim. TM will call with updates. Last Specialist Visit: 12/03/24 Next Specialist Visit: 01/03/25 Dr Burks for left shoulder; Pending surgery for left elbow Front Desk Coordinator Plan/Goals: TM to keep scheduled apts TM to call with updates or changes Continue following plan of care per specialist Conclusion: -TM to call back with updates and changes or as needed. -TM verbalized knowledge of next steps/appointments. -TM has no further concerns at this time. Front Desk Coordinator Signature: Florinda Schwartz RN Date: 12/23/24 documented in this encounter Plan of Treatment Not on file documented as of this encounter Visit Diagnoses Not on filedocumented in this encounter Care Teams Seamless Tube Roller Relationship Specialty [place] [address] PCP - General Apparel Cutter 04/12/22 documented as of this encounter
--- OUTSIDE RECORDS SUMMARY | 2025-01-29 12:32 | XMS_ITS | Encounter Summary ---
Author Organization [facility] Address [address] [place] [address] Phone CareEverywhereSuppor [email or web address] Care Team Providers Care Sql Programmer Analyst Name Role Phone Sreekanth Monique Primary Care Provider Unavailabl e Reason for Visit * Reason Onset Date Comments Care Coordination 12/11/2024 Encounter Details Date Type Department Care Team (Late st Contact Info) Description 12/11/2024 Telephone [facility] 1999 Clinic [address] [place] [address] Florinda Schwartz RN [address] [place] [address] Social History Tobacco Use Types [...] Telephone Encounter - Florinda Schwartz RN - 12/11/2024 8:58 AM EDT Nurse assistant banquet manager note for RADHA VALDEZ. 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 The pop resulted in a brief sharp discomfort with a radiating discomfort running into the medial upper arm. Dx: 1. Neck and shoulder pain M54.2 M25.519 2. Medial epicondylitis of left elbow M77.02 3. Cubital tunnel syndrome on left G56.22 Date of Injury: 08/19/2024 Date reported: 08/19/24 Any previous/current IR's: no Current temporary restrictions: Yes, see [facility] discharge instructions Comorbidities: Depression/PTSD/Psychosocial Current plan of care: TM is treating [...] release and ulnar nerve subluxation- pending approval. Clinic Provider: KAITLYNN Carroll [phone] NEXT CLINIC VISIT: after being released by specialist Last Specialist Visit: 12/03/24 NEXT SPECIALIST VISIT: 01/03/25 Dr Burks for left shoulder; Pending surgery for left elbow Notes: PC to TM for case management introduction. CM contact information given. WMLOA discussed. TMstates she has a call scheduled with Laurie Jay today. TM is pending left elbow surgery. TM states she has not been in PT since being sent home- advised to discuss this with Laurie today. TM tocall with updates/ concerns/ questions. Planned RTW Date: TBD Yarder Plan/Goals: TM to keep scheduled apts TM to call with updates or changes WMLOA case management discussed Notes requested from specialist's office Continue following plan of care per specialist Conclusion: -TM to call back with updates and changes or as needed. -TM verbalized knowledge of next steps/appointments. -E-mail sent to worker's comp rep regarding: NCM assignment and if PT for shoulder will be approved. -TM has no further concerns at this time. Yarder Signature: Florinda Schwartz RN documented in this encounter Plan of Treatment Not on file documented as of this encounter Visit Diagnoses Not on filedocumented in this encounter Care Teams Sql Programmer Analyst Relationship Specialty [place] [address] PCP - General Counselor Marriage And Family 04/12/22 documented as of this encounter
--- OUTSIDE RECORDS SUMMARY | 2025-01-29 12:32 | XMS_ITS | Encounter Summary ---
Author Organization [facility] Address [address] [place] [address] Phone CareEverywhereSuppor [email or web address] Care Team Providers Care Seat Maker Name Role Phone Sreekanth Monique Primary Care Provider Unavailabl e Reason for Visit * Reason Onset Date Comments Care Coordination 12/25/2024 Encounter Details Date Type Department Care Team (Late st Contact Info) Description 12/25/2024 Telephone [facility] 1999 Clinic [address] [place] [address] Florinda Schwartz RN [address] [place] [address] Social History Tobacco Use Types [...] Telephone Encounter - Florinda Schwartz RN - 12/25/2024 1:23 PM EDT Nurse executive communications manager note for follow up call. 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 Clinic Provider: KAITLYNN Carroll [phone] F/U Call Notes: PC to TM for update on surgery. TM states she has been scheduled for left elbow surgery 01/01/25. TM states she has also spoken with her representation and cases are being combined. TMstates she is unclear if she will continue to received TTD and has reached out to Laurie Jay for update- advised that since she is represented, [employer] will likely not be able to speak to her directly and she should be in contact with her employee benefits attorney. TM will call with any updates on coverage or after surgery if no changes. Last Specialist Visit: 12/03/24 Next Specialist Visit: 01/01/25 left elbow surgery; 01/03/25 Dr Burks for left shoulder Child Protective Investigator Plan/Goals: TM to keep scheduled apts TM to call with updates or changes Continue following plan of care per specialist Conclusion: -TM to call back with updates and changes or as needed. -TM verbalized knowledge of next steps/appointments. -TM has no further concerns at this time. Child Protective Investigator Signature: Florinda Schwartz RN Date: 12/25/24 documented in this encounter Plan of Treatment Not on file documented as of this encounter Visit Diagnoses Not on filedocumented in this encounter Care Teams Seat Maker Relationship Specialty [place] [address] PCP - General Policy And Planning Manager 04/12/22 documented as of this encounter
== END 2025-01-29 23:59 | disposition home or self-care (01) ==
LOC: RAD 12:29
PROVIDERS: PCP Internal Medicine; Visit Provider Internal Medicine
DX: M54.2 Cervicalgia (principal); R10.2 Pelvic and perineal pain; V89.2XXA Person injured in unspecified motor-vehicle accident, traffic, initial encounter
CPT/HCPCS: 72050; 72170

== ENCOUNTER 2025-03-04 09:41 | Outpatient (CLI) | payer OTHER, SELFPAY ==
[2025-03-04 13:26] LABS: Hematocrit 38.0 % (37.0-47.0); Hemoglobin 12.3 g/dL (12.2-16.2); Immature Granulocytes % 0.1 %; Mean Corpuscular HGB Conc 32.4 g/dL (31.8-35.4); Mean Corpuscular Hemoglobin 26.2 pg (27.0-31.2); Mean Corpuscular Volume 81.0 fl (81-99); Nucleated Red Blood Cells % 0 %; Platelet Count 353 K/mm3 (142-424); Red Blood Count 4.69 M/mm3 (4.20-5.40); Red Cell Distribution Width-SD 40.2 fL; White Blood Count 6.8 K/mm3 (4.8-10.8)
--- OUTSIDE RECORDS SUMMARY | 2025-03-06 09:45 | XMS_ITS | Clinical Summary ---
Author Organization [facility] Address [address] [place] [address] Phone Care Team Providers Care Manager Of Drilling Name Role Phone Unavailable Primary Care Provider [...] Additional history exists COVID-19 Vaccine ( - 2024- season) 2025 Influenza Vaccine (#1) 2025 02/12/2018 [...] Detected Not Detected 09/08/2017 11:37 AM EDT [facility] Neisseria gonorrhoeae Not Detected Not Detected 09/08/2017 11:37 AM EDT [facility] Swab SPECIMEN FROM UTERINE CERVIX / Unknown 09/07/2017 2:46 PM EDT 09/07/2017 2:52 PM EDT Narrative [facility] - 09/08/2017 11:37 AM EDT Testing methodology is acls nurse mediated amplification (TMA) using the Aptima Combo 2 assay from [employer] A negative result does not completely rule [...] characteristics of this test were validated by [facility]. This assay is FDA cleared to test the following specimens: clinician-collected endocervical, vaginal and male urethral swab specimens, patient collected vaginal specimens within a clinic setting, Thin Prep Specimens in PreservCyt Solution, and first-stream, unpreserved male urine specimens. Testing on female urine is not FDA approved by this methodology, but has been developed and validated by the [facility]. Detailed methodology is available upon request. us Anil Garcia MD MICROBIOLOGY - GENERAL MATT KAUFMAN Final Result [facility] [address] [place] [id number] from Last 3 Months or Most Recently Relevant to Health Maintenance Insurance [facility] [id number] GENERIC WORKERS' COMP
--- OUTSIDE RECORDS SUMMARY | 2025-03-06 09:45 | XMS_ITS | Clinical Summary ---
Author Organization [facility] Address [address] [place] [address] Phone CareSlideMailywhereSuppor [email or web address] Care Team Providers Care Vending Machine Host/Hostess Name Role Phone Sreekanth Monique Primary Care [...] Type Department Care Team Description 01/06/2025 Documentation [facility] [address] [address] Nadiya Mason MA 01/01/2025 Documentation [facility] [address] [address] Florinda Schwartz RN 12/31/2024 [facility] [place] [address] [address] Florinda Schwartz RN 12/25/2024 Telephone [facility] [address] [facility] [place] [address] Florinda Schwartz, JAVIER 12/23/2024 Documentation [place] [address] [address] [place] [address] Florinda Schwartz, JAVIER 12/23/2024 Documentation [facility] 2000 [address] [facility] [place] [address] Florinda Schwartz, JAVIER 12/23/2024 Telephone [place] [address] [address] [facility] [facility] [place] [address] Florinda Schwartz, JAVIER 12/19/2024 Telephone [place] [address] [address] [facility] [place] [place] [address] Florinda Schwartz, JAVIER 12/12/2024 Telephone [place] [address] [address] [facility] [place] [address] Florinda Schwartz, JAVIER 12/11/2024 Telephone [place] [address] Clinic [address] [place] [address] Florinda Schwartz, RN 12/09/2024 Documentation [place] [address] [address] [place] [address] Nadiya Mason MA from Last 3 Months [...] Dental Cleaning/Exam 1999 HIV Screening 1999 HPV only / HPV + Pap 1999 Hepatitis C Screening 1999 Pap only testing 1999 Hepatitis B Immunization (3 of 3 [...] 2025 HIB Immunization Completed 11/24/2000, 06/1999, 01/13/2000 Pneumococcal Immunization Aged Out 2002, 08/17/2000, 06/16/2000 No longer [...] OPT OUT NO COPAY NB Care Teams Vending Machine Host/Hostess Relationship Specialty [place] [address] PCP - General Manager Food Safety 04/12/22
--- OUTSIDE RECORDS SUMMARY | 2025-03-06 09:45 | XMS_ITS | Encounter Summary ---
Author Organization [facility] Address [address] [place] [address] Phone CareEverywhereSuppor [email or web address] Care Team Providers Care Corporate Accounting Manager Name Role Phone Sreekanth Monique Primary Care Provider Unavailabl e Reason for Visit * Reason Onset Date Comments Return to Work / Duty 01/06/2025 CASE UPDAT E/COMMUNICATION- [employer]- TTD Encounter Details Date Type Department Care Team (Late st Contact Info) Description 01/06/2025 Documentation [place] [address] Clinic [address] [place] [address] [place], [place] [address] [place] [address] Social History Tobacco Use Types [...] TTD. TTD ended 12.22.2024-- TM is now estate attorney represented. documented in this encounter Plan of Treatment Not on file documented as of this encounter Visit Diagnoses Not on filedocumented in this encounter Care Teams Corporate Accounting Manager Relationship Specialty [place] [address] PCP - General Air Intercept Controller 04/12/22 documented as of this encounter
== END 2025-03-04 23:59 ==
LOC: LAB.DROPOF 03-06 09:43
PROVIDERS: PCP Internal Medicine; Visit Provider Internal Medicine
DX: D50.9 Iron deficiency anemia, unspecified (principal)
CPT/HCPCS: 85025